=== PATIENT | female | born 1930 | race Caucasian/White ===

== ENCOUNTER 2019-02-25 14:44 | Inpatient (IN) | payer MEDICARE ==
--- NOTE | 2019-02-25 15:48 | EDM.PDOC ---
ED HPI GENERAL MEDICAL PROBLEM - General Chief Complaint: Respiratory Problem Stated Complaint: [facility] Time Seen by Provider: 02/25/19 15:10 Source of Information: Reports: Patient, Family History Limitations: Reports: No Limitations - History of Present Illness INITIAL COMMENTS - FREE TEXT/NARRATIVE: 88-year-old female with a history of intermittent atrial fibrillation has been doing well, Sunday night felt fine but yesterday developed shortness of breath without chest pain or fever. She had difficulty sleeping last night especially lying flat, and is concerned she is gaining weight. She called the clinic to make an appointment at 3:30 today, went to the dentist first and they were concerned that she appeared dyspneic, uncomfortable, and apparently complained of double vision and was "hypertensive" but we did not get a call from the dentist because they called the clinic next door where her appointment was at 3: 30 explaining her symptoms and they told them to just call the ambulance and send her in. Patient arrived dyspneic with O2 at 3 L. She has no double vision currently but she does feel better on the oxygen. Monitor appears to show sinus rhythm with occasional PVCs. She also told me that she was just in the clinic for a checkup last Sunday and was doing fine. There were no medication changes. Onset: Gradual (Over the past 48 hours) Improves with: Reports: Other (Oxygen seems beneficial) Associated Symptoms: Reports: Cough (Nonproductive), Malaise, Weakness, Other ( Intermittent double vision). Denies: Chest Pain - Related Data Allergies Allergy/AdvReac Type Severity Reaction Status Date / Time codeine Allergy Unknown Tachycardia Verified 02/25/19 14:54 levofloxacin [From Levaquin] AdvReac Unknown Diarrhea Verified 02/25/19 14:54 Home Meds: Home Meds Atenolol 50 mg PO DAILY 02/25/19 [History] Calcium Carbonate/Vitamin D3 [Calcium 500 + Vit D Caplet] 1 tab PO DAILY [History] Carboxymethylcellulose Sodium [Thera Tears] 1 drop EYEBOTH DAILY 02/25/19 [ History] Levothyroxine [Synthroid] 88 mcg PO DAILY 02/25/19 [History] Multivitamin [Multi-Vitamin Daily] 1 tab PO DAILY 02/25/19 [History] [place]-3/DHA/Epa/Fish Oil [[place]-3 Fish Oil 1,000 MG Sfgl] 1 cap PO DAILY [History] Potassium Chloride 10 meq PO DAILY 02/25/19 [History] Pravastatin [Pravachol] 40 mg PO DAILY 02/25/19 [History] Rivaroxaban [Xarelto] 15 mg PO DAILY 02/25/19 [History] Vitamin E 1 tab PO DAILY 02/25/19 [History] Past Medical History HEENT History: Reports: Cataract Cardiovascular History: Reports: Afib, High Cholesterol, Hypertension Genitourinary History: Reports: Chronic Renal Insuffiency Musculoskeletal History: Reports: Fracture Endocrine/Metabolic History: Reports: Hypothyroidism Hematologic History: Reports: Iron Deficiency - Infectious Disease History Infectious Disease History: Reports: Chicken Pox, Measles, Mumps - Past Surgical History HEENT Surgical History: Reports: Cataract Surgery GI Surgical History: Reports: Cholecystectomy Social & Family History - Tobacco Use Smoking Status *Q: Never Smoker - Caffeine Use Caffeine Use: Reports: None - Recreational Drug Use Recreational Drug Use: No ED ROS GENERAL - Review of Systems Review Of Systems: See Below Constitutional: Denies: Fever, Chills HEENT: Reports: Vision Change (No significant clarity complaints but she did have double vision this morning) Respiratory: Reports: Shortness of Breath, Cough. Denies: Sputum Cardiovascular: Denies: Chest Pain GI/Abdominal: Denies: Abdominal Pain, Nausea, Vomiting : Reports: No Symptoms Skin: Reports: No Symptoms Neurological: Reports: Dizziness, Weakness Psychiatric: Reports: No Symptoms ED EXAM, GENERAL - Physical Exam Exam: See Below Exam Limited By: No Limitations General Appearance: Alert, No Apparent Distress (Looks uncomfortable but not significantly distressed) Eye Exam: Bilateral Eye: EOMI (EOMs are now intact) Head: Atraumatic Respiratory/Chest: No Respiratory Distress, Other (Bi basilar posterior rales are present with decreased breath sounds in the left base) Cardiovascular: Regular Rate, Rhythm, Extra Beats GI/Abdominal: Soft, Non-Tender Extremities: Pedal Edema (She has just a trace of edema of the lower extremities and ankles, slightly more on the right) Neurological: Alert, Oriented Psychiatric: Normal Affect, Normal Mood Skin Exam: Warm, Dry Course - Vital Signs Last Recorded V/S: Last Vital Signs Temp 97.6 F 02/26/19 04:00 Pulse 63 02/26/19 06:00 Resp 17 02/26/19 06:00 BP 111/78 02/26/19 06:00 Pulse Ox 94 L 02/26/19 06:00 - Orders/Labs/Meds Orders: Active Orders 24 hr Category Date Time Status Styles Catheter Insertion [Insert Urinary Catheter] [OM. Care 02/25/19 16:30 Ordered PC] Q24H Urinary Catheter Assessment [RC] ASDIRECTED Care 02/25/19 16:18 Active Sodium Chloride 0.9% [Saline Flush] Med 02/25/19 16:17 Active 10 ml FLUSH ASDIRECTED PRN Saline Lock Insert [OM.PC] Routine Oth 02/25/19 16:17 Ordered EKG 12 Lead [EK] Routine Ther 02/25/19 15:53 Stop Req Medication Orders Acetaminophen (Tylenol) 650 mg PO Q4H PRN PRN Reason: Pain (Mild 1-3)/fever Last Admin: 02/25/19 22:01 Dose: 650 mg Albuterol (Proventil Neb Soln) 2.5 mg NEB Q4H PRN PRN Reason: Shortness Of Breath/wheezing Artificial Tears (Natural Balance Tears) 0 ml EYEBOTH DAILY MATT Artificial Tears (Natural Balance Tears) 0 ml EYEBOTH DAILY MATT Levothyroxine Sodium (Synthroid) 88 mcg PO DAILY MATT Ondansetron HCl (Zofran Odt) 4 mg PO Q6H PRN PRN Reason: Nausea able to take PO Ondansetron HCl (Zofran) 4 mg IV Q6H PRN PRN Reason: Nausea/Vomiting Polyethylene Glycol (Miralax) 17 gm PO DAILY PRN PRN Reason: Constipation Pravastatin Sodium (Pravachol) 40 mg PO DAILY [facility] Rivaroxaban (Xarelto) 15 mg PO BEDTIME MATT Last Admin: 02/25/19 21:01 Dose: 15 mg Senna/Docusate Sodium (Senna Plus) 1 tab PO DAILY [facility] Sodium Chloride (Saline Flush) 10 ml FLUSH ASDIRECTED PRN PRN Reason: Keep Vein Open Last Admin: 02/25/19 16:31 Dose: 10 ml Labs: Laboratory Tests 02/25/19 02/25/19 02/25/19 Range/Units 15:51 15:52 15:53 WBC 9.4 (4.5-11.0) K/uL RBC 4.78 (3.30-5.50) M/uL Hgb 14.0 (12.0-15.0) g/dL Hct 42.6 (36.0-48.0) % POC Hct (36-48) % MCV 89 (80-98) fL MCH 29 (27-31) pg MCHC 33 (32-36) % Plt Count 264 (150-400) K/uL Neut % (Auto) 80 H (36-66) % Lymph % (Auto) 10 L (24-44) % [place] % (Auto) 9 H (2-6) % Eos % (Auto) 1 L (2-4) % Baso % (Auto) 0 (0-1) % Sample Site POC ABG pH (7.35-7.45) POC ABG pCO2 (35-45) mmHG POC ABG pO2 (80-105) mmHg POC ABG HCO3 (22.0-26.0) mmol/L POC ABG Total CO2 (23-27) mmol/L POC ABG O2 Sat (95-98) % POC ABG Base Excess (-2-3) mmol/L Deni Test POC Sodium (140-148) mmol/L Sodium 129 L (140-148) mmol/L POC Potassium (3.5-4.9) mmol/L Potassium 4.4 (3.6-5.2) mmol/L Chloride 95 L (100-108) mmol/L Carbon Dioxide 24 (21-32) mmol/L Anion Gap 14.4 H (5.0-14.0) mmol/L BUN 17 (7-18) mg/dL Creatinine 1.0 (0.6-1.0) mg/dL Est Cr Clr Drug Dosing 27.93 mL/min Estimated GFR (MDRD) 52 L (>60) Glucose 118 H (74-106) mg/dL Calcium 9.5 (8.5-10.1) mg/dL POC WB Ioniz Calcium (1.12-1.32) mmol/L Total Bilirubin 1.1 H (0.2-1.0) mg/dL AST 43 H (15-37) U/L ALT 47 (12-78) U/L Alkaline Phosphatase 66 (46-116) U/L Troponin I 0.155 H* (0.000-0.056) ng/mL Total Protein 6.5 (6.4-8.2) g/dL Albumin 3.0 L (3.4-5.0) g/dL Globulin 3.5 (2.3-3.5) g/dL Albumin/Globulin Ratio 0.9 L (1.2-2.2) 02/25/19 Range/Units 16:12 WBC (4.5-11.0) K/uL RBC (3.30-5.50) M/uL Hgb (12.0-15.0) g/dL Hct (36.0-48.0) % POC Hct 42.6 (36-48) % MCV (80-98) fL MCH (27-31) pg MCHC (32-36) % Plt Count (150-400) K/uL Neut % (Auto) (36-66) % Lymph % (Auto) (24-44) % [place] % (Auto) (2-6) % Eos % (Auto) (2-4) % Baso % (Auto) (0-1) % Sample Site Lt brachial POC ABG pH 7.48 H (7.35-7.45) POC ABG pCO2 31.1 L (35-45) mmHG POC ABG pO2 75 L (80-105) mmHg POC ABG HCO3 23.1 (22.0-26.0) mmol/L POC ABG Total CO2 24 (23-27) mmol/L POC ABG O2 Sat 96 (95-98) % POC ABG Base Excess 0 (-2-3) mmol/L Deni Test Performed POC Sodium 129 L (140-148) mmol/L Sodium (140-148) mmol/L POC Potassium 4.4 (3.5-4.9) mmol/L Potassium (3.6-5.2) mmol/L Chloride (100-108) mmol/L Carbon Dioxide (21-32) mmol/L Anion Gap (5.0-14.0) mmol/L BUN (7-18) mg/dL Creatinine (0.6-1.0) mg/dL Est Cr Clr Drug Dosing mL/min Estimated GFR (MDRD) (>60) Glucose (74-106) mg/dL Calcium (8.5-10.1) mg/dL POC WB Ioniz Calcium 1.19 (1.12-1.32) mmol/L Total Bilirubin (0.2-1.0) mg/dL AST (15-37) U/L ALT (12-78) U/L Alkaline Phosphatase (46-116) U/L Troponin I (0.000-0.056) ng/mL Total Protein (6.4-8.2) g/dL Albumin (3.4-5.0) g/dL Globulin (2.3-3.5) g/dL Albumin/Globulin Ratio (1.2-2.2) Meds: Medications Generic Name Dose Route Start Last Admin Trade Name Frejadiel PRN Reason Stop Dose Admin Acetaminophen 650 mg 02/25/19 18:17 02/25/19 22:01 Tylenol PO 650 mg Q4H PRN Administration Pain (Mild 1-3)/fever Albuterol 2.5 mg 02/25/19 18:17 Proventil Neb Soln NEB Q4H PRN Shortness Of Breath/wheezing Artificial Tears 0 ml 02/26/19 09:00 Natural Balance Tears EYEBOTH DAILY MATT Artificial Tears 0 ml 02/26/19 09:00 Natural Balance Tears EYEBOTH DAILY MATT Levothyroxine Sodium 88 mcg 02/26/19 09:00 Synthroid PO DAILY MATT Ondansetron HCl 4 mg 02/25/19 18:17 Zofran Odt PO Q6H PRN Nausea able to take PO Ondansetron HCl 4 mg 02/25/19 18:17 Zofran IV Q6H PRN Nausea/Vomiting Polyethylene Glycol 17 gm 02/25/19 18:17 Miralax PO DAILY PRN Constipation Pravastatin Sodium 40 mg 02/26/19 09:00 Pravachol PO DAILY MATT Rivaroxaban 15 mg 02/25/19 21:00 02/25/19 21:01 Xarelto PO 15 mg BEDTIME MATT Administration Senna/Docusate Sodium 1 tab 02/26/19 09:00 Senna Plus PO DAILY MATT Sodium Chloride 10 ml 02/25/19 16:17 02/25/19 16:31 Saline Flush FLUSH 10 ml ASDIRECTED PRN Administration Keep Vein Open Discontinued Medications Generic Name Dose Route Start Last Admin Trade Name José Antonioq PRN Reason Stop Dose Admin Furosemide 40 mg 02/25/19 16:17 02/25/19 16:31 Lasix IVPUSH 04/23/19 16:18 40 mg ONETIME ONE Administration Furosemide 40 mg 02/26/19 01:00 02/26/19 00:25 Lasix IVPUSH 02/26/19 01:01 40 mg ONETIME ONE Administration - Re-Assessments/Exams Free Text/Narrative Re-Assessment/Exam: 02/25/19 16:19 ABGs, portable chest x-ray, CMP CBC and troponin were obtained. Patient was continued on oxygen. Chest x-ray shows significant fluid overload with fairly large left pleural effusion. CBC was normal. IV was started, Styles placed and the patient given 40 mg of IV Lasix. 02/25/19 16:36 Remainder of chemistries and ABGs returned relatively normal. Troponin was 0. Discussed the case with Dr. Love of the hospitalist service, he agreed to assess the patient for admission for further treatment and evaluation of significant and rather sudden onset congestive heart failure and fluid overload. Departure - Departure Time of Disposition: 19:17 Disposition: Admitted As Inpatient 66 Condition: Fair Clinical Impression: Congestive heart failure - Discharge Information - My Orders Last 24 Hours: My Active Orders 02/25/19 15:53 EKG 12 Lead [EK] Routine 02/25/19 16:17 Sodium Chloride 0.9% [Saline Flush] 10 ml FLUSH ASDIRECTED PRN Saline Lock Insert [OM.PC] Routine 02/25/19 16:18 Urinary Catheter Assessment [RC] ASDIRECTED 02/25/19 16:30 Styles Catheter Insertion [Insert Urinary Catheter] [OM.PC] Q24H - Assessment/Plan Last 24 Hours: My Active Orders 02/25/19 15:53 EKG 12 Lead [EK] Routine 02/25/19 16:17 Sodium Chloride 0.9% [Saline Flush] 10 ml FLUSH ASDIRECTED PRN Saline Lock Insert [OM.PC] Routine 02/25/19 16:18 Urinary Catheter Assessment [RC] ASDIRECTED 02/25/19 16:30 Styles Catheter Insertion [Insert Urinary Catheter] [OM.PC] Q24H
[2019-02-25] MEDS ORDERED: Furosemide 40 MG/4 ML VIAL IVPUSH ONE (16:17)
[2019-02-25] MEDS ORDERED: Sodium Chloride 0.9% 10 ML Syringe FLUSH PRN (16:17)
--- NOTE | 2019-02-25 16:45 | CRLCR ---
INDICATION: Shortness of breath TECHNIQUE: Chest 1 view COMPARISON: None FINDINGS: Cardiovascular and mediastinum: Heart borders are obscured. Pulmonary vasculature appears within normal limits. Lungs and pleural spaces: There is a large left pleural effusion. Atelectasis or infiltrates are present in both lower lobes. Upper lungs are clear. No pneumothorax. Bones and soft tissues: No significant findings. Dictated by Abhijeet Adames MD @ 02/25/2019 4:42:55 PM Dictated by: Abhijeet Adames MD @ 02/25/2019 16:43:02 (Electronically Signed)
--- NOTE | 2019-02-25 17:42 | PCM.HP ---
H&P History of Present Illness - General Date of Service: 02/25/19 Admit Problem/Dx: Admission Diagnosis/Problem Admission Diagnosis/Problem Acute systolic congestive heart failure Source of Information: Patient, Family, Provider History Limitations: Reports: No Limitations - History of Present Illness Initial Comments - Free Text/Narative: April presents to the emergency room today with shortness of breath. She reports onset of mild shortness of breath yesterday morning. This has progressed fairly rapidly over the past 24 hours. She is now short of breath even at rest and extremely short of breath with any activity. She has a dry nonproductive cough. She has not had any chest pain recently. She does not report orthopnea. She has not had fevers. She has had some chills but this is not unusual for her. She does not keep track of her weight but does feel like her close been fitting tighter, especially around her abdomen. She has had mild intermittent lower extremity edema but usually seems to go away after elevating her legs. This has not been particularly worse recently. She has some chronic constipation which is unchanged. She has mild urge incontinence which is unchanged. She feels weak and fatigued. She's had some mild dizziness today. Appetite has been down today but had been normal prior to that. She reports that she normally does exercises in the morning but has not been able to do them because of shortness of breath and fatigue the past 2 days. Workup in the emergency room revealed evidence for congestive heart failure based on examination. Chest x-ray showed some pulmonary edema on the right and a very large left-sided pleural effusion. Troponin was very mildly elevated. She received furosemide in the emergency room and will be admitted for management of congestive heart failure. - Related Data Allergies/Adverse Reactions: Allergies Allergy/AdvReac Type Severity Reaction Status Date / Time codeine Allergy Unknown Tachycardia Verified 02/25/19 14:54 levofloxacin [From Levaquin] AdvReac Unknown Diarrhea Verified 02/25/19 14:54 Home Medications: Home Meds Atenolol 50 mg PO DAILY 02/25/19 [History] Calcium Carbonate/Vitamin D3 [Calcium 500 + Vit D Caplet] 1 tab PO DAILY [History] Carboxymethylcellulose Sodium [Thera Tears] 1 drop EYEBOTH DAILY 02/25/19 [ History] Levothyroxine [Synthroid] 88 mcg PO DAILY 02/25/19 [History] Multivitamin [Multi-Vitamin Daily] 1 tab PO DAILY 02/25/19 [History] Oneco-3/DHA/Epa/Fish Oil [Oneco-3 Fish Oil 1,000 MG Sfgl] 1 cap PO DAILY [History] Potassium Chloride 10 meq PO DAILY 02/25/19 [History] Pravastatin [Pravachol] 40 mg PO DAILY 02/25/19 [History] Rivaroxaban [Xarelto] 15 mg PO DAILY 02/25/19 [History] Vitamin E 1 tab PO DAILY 02/25/19 [History] Past Medical History HEENT History: Reports: Cataract Cardiovascular History: Reports: Afib, High Cholesterol, Hypertension Genitourinary History: Reports: Chronic Renal Insuffiency Musculoskeletal History: Reports: Fracture Endocrine/Metabolic History: Reports: Hypothyroidism Hematologic History: Reports: Iron Deficiency - Infectious Disease History Infectious Disease History: Reports: Chicken Pox, Measles, Mumps - Past Surgical History HEENT Surgical History: Reports: Cataract Surgery GI Surgical History: Reports: Cholecystectomy Social & Family History - Family History Cardiac: Reports: Heart Murmur (Brother with history of rheumatic fever). Denies: CAD, Cardiomyopathy - Tobacco Use Smoking Status *Q: Never Smoker - Caffeine Use Caffeine Use: Reports: None - Alcohol Use Alcohol Use History: No - Recreational Drug Use Recreational Drug Use: No H&P Review of Systems - Review of Systems: Review Of Systems: See Below Free Text/Narrative: A complete 12 point review of systems was obtained. Pertinent positives and negatives are noted in the history of present illness. All other systems were reviewed and were negative except as noted. Exam - Exam Exam: See Below - Vital Signs Vital Signs: Last Vital Signs Temp 36.2 C 02/25/19 15:19 Pulse 66 02/25/19 17:23 Resp 24 H 02/25/19 17:23 BP 147/82 H 02/25/19 17:23 Pulse Ox 96 02/25/19 17:23 Weight: 52.617 kg - Exam Quality Assessment: Supplemental Oxygen General: Alert, Oriented, Cooperative, Mild Distress (Increased work of breathing) HEENT: Conjunctiva Clear, Mucosa Moist & [place]. No: Scleral Icterus Neck: Supple, Trachea Midline, JVD (To the earlobe sitting straight up). No: Lymphadenopathy Lungs: Decreased Breath Sounds (Left lung base), Crackles (Right lower lung and left midlung). No: Normal Respiratory Effort (Increased work of breathing), Wheezing Cardiovascular: Regular Rate, Regular Rhythm, Gallop/S3. No: Systolic Murmur GI/Abdominal Exam: Normal Bowel Sounds, Soft, Non-Tender, No Distention, Mass ( Midabdomen) Back Exam: Normal Inspection, Full Range of Motion Extremities: No Pedal Edema. No: Increased Warmth Peripheral Pulses: 1+: Dorsalis Pedis (L), Dorsalis Pedis (R) Skin: Warm, Dry Neuro Extensive - Mental Status: Alert, Oriented x3, Nl Response to Commands Neuro Extensive - Motor, Sensory, Reflexes: CN II-XII Intact. No: Dysarthria, Abnormal Motor, Tremor Psychiatric: Alert, Normal Affect - Patient Data Lab Results Last 24 hrs: Laboratory Results - last 24 hr 02/25/19 02/25/19 02/25/19 Range/Units 15:51 15:52 15:53 WBC 9.4 (4.5-11.0) K/uL RBC 4.78 (3.30-5.50) M/uL Hgb 14.0 (12.0-15.0) g/dL Hct 42.6 (36.0-48.0) % POC Hct (36-48) % MCV 89 (80-98) fL MCH 29 (27-31) pg MCHC 33 (32-36) % Plt Count 264 (150-400) K/uL Neut % (Auto) 80 H (36-66) % Lymph % (Auto) 10 L (24-44) % Jerome % (Auto) 9 H (2-6) % Eos % (Auto) 1 L (2-4) % Baso % (Auto) 0 (0-1) % Sample Site POC ABG pH (7.35-7.45) POC ABG pCO2 (35-45) mmHG POC ABG pO2 (80-105) mmHg POC ABG HCO3 (22.0-26.0) mmol/L POC ABG Total CO2 (23-27) mmol/L POC ABG O2 Sat (95-98) % POC ABG Base Excess (-2-3) mmol/L Deni Test POC Sodium (140-148) mmol/L Sodium 129 L (140-148) mmol/L POC Potassium (3.5-4.9) mmol/L Potassium 4.4 (3.6-5.2) mmol/L Chloride 95 L (100-108) mmol/L Carbon Dioxide 24 (21-32) mmol/L Anion Gap 14.4 H (5.0-14.0) mmol/L BUN 17 (7-18) mg/dL Creatinine 1.0 (0.6-1.0) mg/dL Est Cr Clr Drug Dosing 27.93 mL/min Estimated GFR (MDRD) 52 L (>60) Glucose 118 H (74-106) mg/dL Calcium 9.5 (8.5-10.1) mg/dL POC WB Ioniz Calcium (1.12-1.32) mmol/L Total Bilirubin 1.1 H (0.2-1.0) mg/dL AST 43 H (15-37) U/L ALT 47 (12-78) U/L Alkaline Phosphatase 66 (46-116) U/L Troponin I 0.155 H* (0.000-0.056) ng/mL Total Protein 6.5 (6.4-8.2) g/dL Albumin 3.0 L (3.4-5.0) g/dL Globulin 3.5 (2.3-3.5) g/dL Albumin/Globulin Ratio 0.9 L (1.2-2.2) 02/25/19 Range/Units 16:12 WBC (4.5-11.0) K/uL RBC (3.30-5.50) M/uL Hgb (12.0-15.0) g/dL Hct (36.0-48.0) % POC Hct 42.6 (36-48) % MCV (80-98) fL MCH (27-31) pg MCHC (32-36) % Plt Count (150-400) K/uL Neut % (Auto) (36-66) % Lymph % (Auto) (24-44) % Jerome % (Auto) (2-6) % Eos % (Auto) (2-4) % Baso % (Auto) (0-1) % Sample Site Lt brachial POC ABG pH 7.48 H (7.35-7.45) POC ABG pCO2 31.1 L (35-45) mmHG POC ABG pO2 75 L (80-105) mmHg POC ABG HCO3 23.1 (22.0-26.0) mmol/L POC ABG Total CO2 24 (23-27) mmol/L POC ABG O2 Sat 96 (95-98) % POC ABG Base Excess 0 (-2-3) mmol/L Deni Test Performed POC Sodium 129 L (140-148) mmol/L Sodium (140-148) mmol/L POC Potassium 4.4 (3.5-4.9) mmol/L Potassium (3.6-5.2) mmol/L Chloride (100-108) mmol/L Carbon Dioxide (21-32) mmol/L Anion Gap (5.0-14.0) mmol/L BUN (7-18) mg/dL Creatinine (0.6-1.0) mg/dL Est Cr Clr Drug Dosing mL/min Estimated GFR (MDRD) (>60) Glucose (74-106) mg/dL Calcium (8.5-10.1) mg/dL POC WB Ioniz Calcium 1.19 (1.12-1.32) mmol/L Total Bilirubin (0.2-1.0) mg/dL AST (15-37) U/L ALT (12-78) U/L Alkaline Phosphatase (46-116) U/L Troponin I (0.000-0.056) ng/mL Total Protein (6.4-8.2) g/dL Albumin (3.4-5.0) g/dL Globulin (2.3-3.5) g/dL Albumin/Globulin Ratio (1.2-2.2) Result Diagrams: 02/25/19 15:51 02/25/19 15:52 Imaging Impressions Last 24 hrs: Chest x-ray - images personally reviewed - there is evidence for pulmonary edema on the right side and a very large left-sided pleural effusion. Heart size is not able to be determined because of the large effusion. No obvious mass noted but very limited because of the large effusion. EKG INTERPRETATION EKG Date: 02/25/19 Rhythm: NSR Rate (Beats/Min): 67 Stowell: LAD-Left Stowell Deviation P-Wave: Present QRS: LBBB ST-T: Other (As expected with left bundle branch block) QT: Normal Comparison: NA - No Prior EKG EKG Interpretation Comments: This image was also personally reviewed - there is evidence for first-degree AV block as well *Q Meaningful Use (ADM) - VTE Risk Assess *Q Each Risk Factor Represents 1 Point: Congestive heart failure (CHF) Total Score 1 Point Risk Factors: 1 Each Risk Factor Represents 2 Points: None Total Score 2 Point Risk Factors: 0 Each Risk Factor Represents 3 Points: Age 75 Years or Greater Total Score 3 Point Risk Factors: 3 Each Risk Factor Represents 5 Points: None Total Score 5 Point Risk Factors: 0 Venous Thromboembolism Risk Factor Score *Q: 4 - Problem List (1) Acute systolic congestive heart failure, NYHA class 3 SNOMED Code(s): 009482111, 186019210, 031940521 ICD Code: I50.21 - ACUTE SYSTOLIC (CONGESTIVE) HEART FAILURE Status: Acute Current Visit: Yes (2) Elevated troponin SNOMED Code(s): 814958486, 381972586, 144624960 ICD Code: R74.8 - ABNORMAL LEVELS OF OTHER SERUM ENZYMES Status: Acute Current Visit: Yes (3) Hypothyroidism SNOMED Code(s): 84001724 ICD Code: E03.9 - HYPOTHYROIDISM, UNSPECIFIED Status: Acute Current Visit : Yes Qualifiers: Hypothyroidism type: acquired Qualified Code(s): E03.9 - Hypothyroidism, unspecified Problem List Initiated/Reviewed/Updated: Yes Orders Last 24hrs: Active Orders 24 hr Category Date Time Status Patient Status Manage Transfer [TRANSFER] Routine ADT 02/25/19 17:24 Ordered EKG Documentation Completion [RC] ASDIRECTED Care 02/25/19 15:53 Active Styles Catheter Insertion [Insert Urinary Catheter] [OM. Care 02/25/19 16:30 Ordered PC] Q24H Urinary Catheter Assessment [RC] ASDIRECTED Care 02/25/19 16:18 Active Sodium Chloride 0.9% [Saline Flush] Med 02/25/19 16:17 Active 10 ml FLUSH ASDIRECTED PRN Saline Lock Insert [OM.PC] Routine Oth 02/25/19 16:17 Ordered Resuscitation Status Routine Resus Stat 02/25/19 17:27 Ordered EKG 12 Lead [EK] Routine Ther 02/25/19 15:53 Ordered Medication Orders Sodium Chloride (Saline Flush) 10 ml FLUSH ASDIRECTED PRN PRN Reason: Keep Vein Open Last Admin: 02/25/19 16:31 Dose: 10 ml Assessment/Plan Comment:: ASSESSMENT AND PLAN - Acute systolic congestive heart failure - no history of heart failure or heart issues other than intermittent atrial fibrillation. Sounds like a fairly rapid decompensation over the past 36 hours. Bedside ultrasound showed very poor ejection fraction, probably around 20%. The congestive heart failure is complicated by significant dyspnea with any exertion as well as a large left pleural effusion. Troponin mildly elevated but I doubt this represents an acute coronary syndrome as discussed below. -Furosemide every 8 hours -Styles catheter for strict intake and output monitoring -Reassess volume status in the morning -Formal echocardiogram in the morning -TSH -Change atenolol to metoprolol -Consider NATHANIEL/ARB once more euvolemic if blood pressure tolerates Large left pleural effusion - Probably related to congestive heart failure but cannot rule out underlying malignancy at this point. -Diuresis as above -Surgical consultation the morning for paracentesis Elevated troponin - A mild elevation at this time, I suspect is related to strain from the congestive heart failure. There are no acute ischemic changes on the EKG. -Repeat troponin later tonight and in the morning Paroxysmal atrial fibrillation - currently in sinus rhythm. She is chronically anticoagulated. -Continue beta marilee -Continue rivaroxaban Hypothyroidism - Mild symptoms that could suggest hypothyroid state. -TSH in the morning Maintenance issues - - DVT prophylaxis - rivaroxaban - GI prophylaxis - not indicated - Nutrition - low sodium - Styles catheter - placed in the emergency room for strict intake and output monitoring CODE STATUS - DNR/DNI Admission justification - This patient will be admitted for inpatient services and is medically appropriate meeting medical necessity for inpatient admission as outlined in my documentation. I reasonably expect the patient will require inpatient services that span a period time over 2 midnights. I reasonably expect this patient to be discharged or transferred within 96 hours after admission to the [facility]. Disposition - I would anticipate discharge home after the hospital stay Primary care physician - Clara Love M.D.
[2019-02-25] MEDS ORDERED: Albuterol 0.083% 2.5 MG/3 ML Neb Soln NEB PRN (18:17)
[2019-02-25] MEDS ORDERED: Ondansetron 4 MG Tab.DIS PO PRN (18:17)
[2019-02-25] MEDS ORDERED: Polyethylene Glycol 3350 Powder 17 GM Packet PO PRN (18:17)
[2019-02-25] MEDS ORDERED: Acetaminophen 325 MG Tab PO PRN (18:17)
[2019-02-25] MEDS ORDERED: Ondansetron 4 MG/2 ML SDV IV PRN (18:17)
[2019-02-25] MEDS: Rivaroxaban 15 MG Tab PO SCH (21:01)
[2019-02-26] MEDS ORDERED: Furosemide 40 MG/4 ML VIAL IVPUSH ONE ×2 (01:00→14:00)
[2019-02-26] MEDS: Levothyroxine 88 MCG Tab PO SCH (08:28)
[2019-02-26] MEDS: Hypromellose 0.4% Ophth Soln 15 ML Bottle EYEBOTH SCH (08:32)
[2019-02-26] MEDS ORDERED: Pravastatin 20 MG Tab PO SCH (09:00)
[2019-02-26] MEDS ORDERED: Hypromellose 0.4% Ophth Soln 15 ML Bottle EYEBOTH SCH (09:00)
--- NOTE | 2019-02-26 09:44 | PCM.PN ---
- General Info Date of Service: 02/26/19 Subjective Update: there were no acute events overnight. Troponin level has remained flat but has not normalized. No complaints of chest pain. excellent diuresis overnight with nearly 4 L of fluid off. Shortness of breath is much better today. She is requiring supplemental oxygen at about 4 L/m. No lower extremity edema. Cough is little better. No chest pain. Formal echocardiogram is still pending. Functional Status: Reports: Pain Controlled, Tolerating Diet - Review of Systems Pulmonary: Reports: Shortness of Breath Cardiovascular: Denies: Edema - Patient Data Vitals - Most Recent: Last Vital Signs Temp 35.4 C 02/26/19 08:00 Pulse 88 02/26/19 08:00 Resp 20 02/26/19 08:00 BP 112/78 02/26/19 08:00 Pulse Ox 93 L 02/26/19 08:00 Weight - Most Recent: 51.256 kg I&O - Last 24 Hours: Intake & Output 02/25/19 02/26/19 02/26/19 22:59 06:59 14:59 Intake Total 240 Output Total 1600 2600 350 Balance -1600 -2360 -350 Lab Results Last 24 Hours: Laboratory Results - last 24 hr 02/25/19 02/25/19 02/25/19 Range/Units 15:51 15:52 15:53 WBC 9.4 (4.5-11.0) K/uL RBC 4.78 (3.30-5.50) M/uL Hgb 14.0 (12.0-15.0) g/dL Hct 42.6 (36.0-48.0) % POC Hct (36-48) % MCV 89 (80-98) fL MCH 29 (27-31) pg MCHC 33 (32-36) % Plt Count 264 (150-400) K/uL Neut % (Auto) 80 H (36-66) % Lymph % (Auto) 10 L (24-44) % [place] % (Auto) 9 H (2-6) % Eos % (Auto) 1 L (2-4) % Baso % (Auto) 0 (0-1) % Sample Site POC ABG pH (7.35-7.45) POC ABG pCO2 (35-45) mmHG POC ABG pO2 (80-105) mmHg POC ABG HCO3 (22.0-26.0) mmol/L POC ABG Total CO2 (23-27) mmol/L POC ABG O2 Sat (95-98) % POC ABG Base Excess (-2-3) mmol/L Deni Test POC Sodium (140-148) mmol/L Sodium 129 L (140-148) mmol/L POC Potassium (3.5-4.9) mmol/L Potassium 4.4 (3.6-5.2) mmol/L Chloride 95 L (100-108) mmol/L Carbon Dioxide 24 (21-32) mmol/L Anion Gap 14.4 H (5.0-14.0) mmol/L BUN 17 (7-18) mg/dL Creatinine 1.0 (0.6-1.0) mg/dL Est Cr Clr Drug Dosing 27.93 mL/min Estimated GFR (MDRD) 52 L (>60) Glucose 118 H (74-106) mg/dL Calcium 9.5 (8.5-10.1) mg/dL POC WB Ioniz Calcium (1.12-1.32) mmol/L Total Bilirubin 1.1 H (0.2-1.0) mg/dL AST 43 H (15-37) U/L ALT 47 (12-78) U/L Alkaline Phosphatase 66 (46-116) U/L Troponin I 0.155 H* (0.000-0.056) ng/mL Total Protein 6.5 (6.4-8.2) g/dL Albumin 3.0 L (3.4-5.0) g/dL Globulin 3.5 (2.3-3.5) g/dL Albumin/Globulin Ratio 0.9 L (1.2-2.2) TSH, Ultra Sensitive (0.358-3.740) uIU/mL 02/25/19 02/25/19 02/26/19 Range/Units 16:12 20:55 05:50 WBC 11.5 H (4.5-11.0) K/uL RBC 4.79 (3.30-5.50) M/uL Hgb 14.0 (12.0-15.0) g/dL Hct 42.7 (36.0-48.0) % POC Hct 42.6 (36-48) % MCV 89 (80-98) fL MCH 29 (27-31) pg MCHC 33 (32-36) % Plt Count 259 (150-400) K/uL Neut % (Auto) (36-66) % Lymph % (Auto) (24-44) % [place] % (Auto) (2-6) % Eos % (Auto) (2-4) % Baso % (Auto) (0-1) % Sample Site Lt brachial POC ABG pH 7.48 H (7.35-7.45) POC ABG pCO2 31.1 L (35-45) mmHG POC ABG pO2 75 L (80-105) mmHg POC ABG HCO3 23.1 (22.0-26.0) mmol/L POC ABG Total CO2 24 (23-27) mmol/L POC ABG O2 Sat 96 (95-98) % POC ABG Base Excess 0 (-2-3) mmol/L Deni Test Performed POC Sodium 129 L (140-148) mmol/L Sodium (140-148) mmol/L POC Potassium 4.4 (3.5-4.9) mmol/L Potassium (3.6-5.2) mmol/L Chloride (100-108) mmol/L Carbon Dioxide (21-32) mmol/L Anion Gap (5.0-14.0) mmol/L BUN (7-18) mg/dL Creatinine (0.6-1.0) mg/dL Est Cr Clr Drug Dosing mL/min Estimated GFR (MDRD) (>60) Glucose (74-106) mg/dL Calcium (8.5-10.1) mg/dL POC WB Ioniz Calcium 1.19 (1.12-1.32) mmol/L Total Bilirubin (0.2-1.0) mg/dL AST (15-37) U/L ALT (12-78) U/L Alkaline Phosphatase (46-116) U/L Troponin I 0.169 H* (0.000-0.056) ng/mL Total Protein (6.4-8.2) g/dL Albumin (3.4-5.0) g/dL Globulin (2.3-3.5) g/dL Albumin/Globulin Ratio (1.2-2.2) TSH, Ultra Sensitive (0.358-3.740) uIU/mL 04/24/19 Range/Units 05:50 WBC (4.5-11.0) K/uL RBC (3.30-5.50) M/uL Hgb (12.0-15.0) g/dL Hct (36.0-48.0) % POC Hct (36-48) % MCV (80-98) fL MCH (27-31) pg MCHC (32-36) % Plt Count (150-400) K/uL Neut % (Auto) (36-66) % Lymph % (Auto) (24-44) % [place] % (Auto) (2-6) % Eos % (Auto) (2-4) % Baso % (Auto) (0-1) % Sample Site POC ABG pH (7.35-7.45) POC ABG pCO2 (35-45) mmHG POC ABG pO2 (80-105) mmHg POC ABG HCO3 (22.0-26.0) mmol/L POC ABG Total CO2 (23-27) mmol/L POC ABG O2 Sat (95-98) % POC ABG Base Excess (-2-3) mmol/L Deni Test POC Sodium (140-148) mmol/L Sodium 134 L (140-148) mmol/L POC Potassium (3.5-4.9) mmol/L Potassium 3.6 (3.6-5.2) mmol/L Chloride 95 L (100-108) mmol/L Carbon Dioxide 34 H (21-32) mmol/L Anion Gap 8.6 (5.0-14.0) mmol/L BUN 17 (7-18) mg/dL Creatinine 1.3 H (0.6-1.0) mg/dL Est Cr Clr Drug Dosing 21.49 mL/min Estimated GFR (MDRD) 39 L (>60) Glucose 97 (74-106) mg/dL Calcium 9.3 (8.5-10.1) mg/dL POC WB Ioniz Calcium (1.12-1.32) mmol/L Total Bilirubin (0.2-1.0) mg/dL AST (15-37) U/L ALT (12-78) U/L Alkaline Phosphatase (46-116) U/L Troponin I 0.154 H* (0.000-0.056) ng/mL Total Protein (6.4-8.2) g/dL Albumin (3.4-5.0) g/dL Globulin (2.3-3.5) g/dL Albumin/Globulin Ratio (1.2-2.2) TSH, Ultra Sensitive 1.735 (0.358-3.740) uIU/mL Med Orders - Current: Current Medications Acetaminophen (Tylenol) 650 mg PO Q4H PRN PRN Reason: Pain (Mild 1-3)/fever Last Admin: 02/25/19 22:01 Dose: 650 mg Albuterol (Proventil Neb Soln) 2.5 mg NEB Q4H PRN PRN Reason: Shortness Of Breath/wheezing Artificial Tears (Natural Balance Tears) 0 ml EYEBOTH DAILY [facility] Last Admin: 02/26/19 08:32 Dose: 2 drop Levothyroxine Sodium (Synthroid) 88 mcg PO DAILY@0730 [facility] Last Admin: 02/26/19 08:28 Dose: 88 mcg Ondansetron HCl (Zofran Odt) 4 mg PO Q6H PRN PRN Reason: Nausea able to take PO Ondansetron HCl (Zofran) 4 mg IV Q6H PRN PRN Reason: Nausea/Vomiting Polyethylene Glycol (Miralax) 17 gm PO DAILY PRN PRN Reason: Constipation Pravastatin Sodium (Pravachol) 40 mg PO BEDTIME [facility] Rivaroxaban (Xarelto) 15 mg PO BEDTIME [facility] Last Admin: 02/25/19 21:01 Dose: 15 mg Senna/Docusate Sodium (Senna Plus) 1 tab PO DAILY [facility] Last Admin: 02/26/19 08:33 Dose: 1 tab Sodium Chloride (Saline Flush) 10 ml FLUSH ASDIRECTED PRN PRN Reason: Keep Vein Open Last Admin: 02/25/19 16:31 Dose: 10 ml Discontinued Medications Furosemide (Lasix) 40 mg IVPUSH ONETIME ONE Stop: 02/25/19 16:18 Last Admin: 02/25/19 16:31 Dose: 40 mg Furosemide (Lasix) 40 mg IVPUSH ONETIME ONE Stop: 02/26/19 01:01 Last Admin: 02/26/19 00:25 Dose: 40 mg Pravastatin Sodium (Pravachol) 40 mg PO DAILY [facility] - Exam Quality Assessment: Supplemental Oxygen General: Alert, Oriented, Cooperative, No Acute Distress Lungs: Normal Respiratory Effort, Decreased Breath Sounds (left lung base), Crackles (right lower and left mid). No: Wheezing Cardiovascular: Regular Rate, Irregular Rhythm GI/Abdominal Exam: Soft, No Distention Extremities: No Pedal Edema. No: Increased Warmth Skin: Warm, Dry Psy/Mental Status: Alert, Normal Affect - Problem List & Annotations (1) Acute systolic congestive heart failure, NYHA class 3 SNOMED Code(s): 236033771, 435269015, 732524457 Code(s): I50.21 - ACUTE SYSTOLIC (CONGESTIVE) HEART FAILURE Status: Acute Current Visit: Yes (2) Elevated troponin SNOMED Code(s): 095238971, 048719928, 594611253 Code(s): R74.8 - ABNORMAL LEVELS OF OTHER SERUM ENZYMES Status: Acute Current Visit: Yes (3) Hypothyroidism SNOMED Code(s): 66905684 Code(s): E03.9 - HYPOTHYROIDISM, UNSPECIFIED Status: Acute Current Visit : Yes Qualifiers: Hypothyroidism type: acquired Qualified Code(s): E03.9 - Hypothyroidism, unspecified - Problem List Review Problem List Initiated/Reviewed/Updated: Yes - My Orders Last 24 Hours: My Active Orders 02/25/19 17:27 Resuscitation Status Routine 02/25/19 18:17 Patient Status [ADT] Routine Antiembolic Devices [RC] .Routine Cardiac Monitoring [RC] Q6H Intake and Output [RC] QSHIFT Notify Provider Vital Signs [RC] ASDIRECTED Oxygen Therapy [RC] PRN Pulse Oximetry [RC] CONTINUOUS RT Aerosol Therapy [RC] ASDIRECTED Up With Assistance [RC] ASDIRECTED VTE/DVT Education [RC] Per Unit Routine Vital Signs [RC] Q4H Acetaminophen [Tylenol] 650 mg PO Q4H PRN Albuterol [Proventil Neb Soln] 2.5 mg NEB Q4H PRN Ondansetron [Zofran ODT] 4 mg PO Q6H PRN Ondansetron [Zofran] 4 mg IV Q6H PRN Polyethylene Glycol 3350 [MiraLAX] 17 gm PO DAILY PRN Antiembolic Hose [OM.PC] Per Unit Routine 02/25/19 21:00 Rivaroxaban [Xarelto] 15 mg PO BEDTIME 02/25/19 Dinner 2 Gram Sodium Diet [DIET] 02/26/19 07:00 Echo Comp wo Cont [US] Routine 02/26/19 07:30 Levothyroxine [Synthroid] 88 mcg PO DAILY@0730 02/26/19 09:00 Docusate Sodium/Sennosides [Senna Plus] 1 tab PO DAILY Hypromellose [Natural Balance Tears] 0 ml EYEBOTH DAILY 02/26/19 09:39 Potassium Chloride [Klor-Con M20] 40 meq PO ONETIME ONE 02/26/19 09:41 MAGNESIUM [CHEM] Routine 02/26/19 09:42 Transfer Patient (Change bed) [ADT] Routine 02/26/19 14:00 Furosemide [Lasix] 40 mg IVPUSH ONETIME ONE 02/26/19 21:00 Pravastatin [Pravachol] 40 mg PO BEDTIME 02/27/19 05:00 BASIC METABOLIC PANEL,BMP [CHEM] Timed CBC W/O DIFF,HEMOGRAM [HEME] Timed (1) TROPONIN I [CHEM] Timed - Plan Plan:: ASSESSMENT AND PLAN - Acute systolic congestive heart failure - clinically much better. Formal echocardiogram pending. Still requiring supplemental oxygen. Creatinine slightly higher today so we will have to hold off on additional furosemide until this afternoon. -Furosemide 1 this afternoon and reassess volume status in the morning -Styles catheter for strict intake and output monitoring -Formal echocardiogram -Change atenolol to metoprolol -Consider NATHANIEL/ARB once more euvolemic if blood pressure tolerates Large left pleural effusion - Probably related to congestive heart failure but cannot rule out underlying malignancy at this point. she did have her DOAC last night so we will have to wait until tomorrow for the thoracentesis. -Diuresis as above -Surgical consultation the morning for thoracentesis Elevated troponin - mild elevation with stable level suggesting strain related to congestive heart failure. -Repeat troponin in the morning Paroxysmal atrial fibrillation - she is now atrial fibrillation with a controlled ventricular rate. -Continue beta marilee -Continue rivaroxaban Hypothyroidism - TSH normal. Maintenance issues - - DVT prophylaxis - rivaroxaban (holding tonight for procedure tomorrow) - GI prophylaxis - not indicated - Nutrition - low sodium - Styles catheter - placed in the emergency room for strict intake and output monitoring, plan to remove once diuresis is complete Disposition - I would anticipate discharge home after the hospital stay Cedrick Love M.D.
[2019-02-26] MEDS ORDERED: Potassium Chloride 20 MEQ Tab.ER PO ONE (10:00)
[2019-02-26] MEDS: Magnesium Sulfate/Water 2 GM in Premix Bag 1 BAG IV SCH ×2 (15:15→20:57)
[2019-02-26] MEDS ORDERED: Metoprolol Succinate 50 MG Tab.ER PO ONE (17:56)
[2019-02-26] MEDS: Pravastatin 20 MG Tab PO SCH (21:02)
[2019-02-27] MEDS: Levothyroxine 88 MCG Tab PO SCH (08:48)
[2019-02-27] MEDS: Hypromellose 0.4% Ophth Soln 15 ML Bottle EYEBOTH SCH (08:49)
[2019-02-27] MEDS ORDERED: Metoprolol Succinate 50 MG Tab.ER PO SCH (09:00)
[2019-02-27] MEDS: Potassium Chloride 20 MEQ Tab.ER PO SCH ×2 (10:28→18:00)
--- NOTE | 2019-02-27 12:25 | PCM.PN ---
- General Info Date of Service: 02/27/19 Subjective Update: There were no acute events overnight. Patient did have suboptimal control of her atrial fibrillation noted is a little better today. Shortness of breath has improved significantly. Still requiring 2 L of supplemental oxygen. No complaints of chest pain. Echocardiogram showed reduced ejection fraction at 25- 30%. She has mild aortic and moderate mitral insufficiency. Thoracentesis is pending. Functional Status: Reports: Pain Controlled, Tolerating Diet - Review of Systems Pulmonary: Reports: Cough - Patient Data Vitals - Most Recent: Last Vital Signs Temp 36.5 C 02/27/19 09:02 Pulse 122 H 02/27/19 09:02 Resp 18 02/27/19 09:02 BP 123/98 H 02/27/19 09:02 Pulse Ox 96 02/27/19 09:02 Weight - Most Recent: 51.256 kg I&O - Last 24 Hours: Intake & Output 02/26/19 02/27/19 02/27/19 22:59 06:59 14:59 Intake Total 410 500 Output Total 1200 450 Balance -790 -450 500 Lab Results Last 24 Hours: Laboratory Results - last 24 hr 02/27/19 02/27/19 Range/Units 04:44 04:44 WBC 10.9 (4.5-11.0) K/uL RBC 4.91 (3.30-5.50) M/uL Hgb 14.1 (12.0-15.0) g/dL Hct 43.7 (36.0-48.0) % MCV 89 (80-98) fL MCH 29 (27-31) pg MCHC 32 (32-36) % Plt Count 288 (150-400) K/uL Sodium 135 L (140-148) mmol/L Potassium 3.3 L (3.6-5.2) mmol/L Chloride 98 L (100-108) mmol/L Carbon Dioxide 31 (21-32) mmol/L Anion Gap 9.3 (5.0-14.0) mmol/L BUN 20 H (7-18) mg/dL Creatinine 1.2 H (0.6-1.0) mg/dL Est Cr Clr Drug Dosing 23.28 mL/min Estimated GFR (MDRD) 42 L (>60) Glucose 85 (74-106) mg/dL Calcium 9.0 (8.5-10.1) mg/dL Troponin I 0.083 H* (0.000-0.056) ng/mL Med Orders - Current: Current Medications Acetaminophen (Tylenol) 650 mg PO Q4H PRN PRN Reason: Pain (Mild 1-3)/fever Last Admin: 02/25/19 22:01 Dose: 650 mg Albuterol (Proventil Neb Soln) 2.5 mg NEB Q4H PRN PRN Reason: Shortness Of Breath/wheezing Artificial Tears (Natural Balance Tears) 0 ml EYEBOTH DAILY [facility] Last Admin: 02/27/19 08:49 Dose: 1 drop Levothyroxine Sodium (Synthroid) 88 mcg PO DAILY@0730 [facility] Last Admin: 02/27/19 08:48 Dose: 88 mcg Metoprolol Succinate (Toprol Xl) 50 mg PO DAILY [facility] Last Admin: 02/27/19 08:51 Dose: 50 mg Ondansetron HCl (Zofran Odt) 4 mg PO Q6H PRN PRN Reason: Nausea able to take PO Ondansetron HCl (Zofran) 4 mg IV Q6H PRN PRN Reason: Nausea/Vomiting Polyethylene Glycol (Miralax) 17 gm PO DAILY PRN PRN Reason: Constipation Potassium Chloride (Klor-Con M20) 40 meq PO BIDMEALS [facility] Last Admin: 02/27/19 10:28 Dose: 40 meq Pravastatin Sodium (Pravachol) 40 mg PO BEDTIME [facility] Last Admin: 02/26/19 21:02 Dose: 40 mg Rivaroxaban (Xarelto) 15 mg PO BEDTIME [facility] Last Admin: 02/25/19 21:01 Dose: 15 mg Senna/Docusate Sodium (Senna Plus) 1 tab PO DAILY [facility] Last Admin: 02/27/19 08:50 Dose: 1 tab Sodium Chloride (Saline Flush) 10 ml FLUSH ASDIRECTED PRN PRN Reason: Keep Vein Open Last Admin: 02/25/19 16:31 Dose: 10 ml Discontinued Medications Furosemide (Lasix) 40 mg IVPUSH ONETIME ONE Stop: 02/25/19 16:18 Last Admin: 02/25/19 16:31 Dose: 40 mg Furosemide (Lasix) 40 mg IVPUSH ONETIME ONE Stop: 02/26/19 01:01 Last Admin: 02/26/19 00:25 Dose: 40 mg Furosemide (Lasix) 40 mg IVPUSH ONETIME ONE Stop: 02/26/19 14:01 Last Admin: 02/26/19 13:35 Dose: 40 mg Magnesium Sulfate 2 gm/ Premix 50 mls @ 12.5 mls/hr IV Q6H MATT Stop: 02/27/19 00:59 Last Admin: 02/26/19 20:57 Dose: 12.5 mls/hr Metoprolol Succinate (Toprol Xl) 50 mg PO ONETIME ONE Stop: 02/26/19 17:57 Last Admin: 02/26/19 18:21 Dose: 50 mg Potassium Chloride (Klor-Con M20) 40 meq PO ONETIME ONE Stop: 02/26/19 10:01 Last Admin: 02/26/19 10:09 Dose: 40 meq Pravastatin Sodium (Pravachol) 40 mg PO DAILY [facility]ATT - Exam Quality Assessment: Supplemental Oxygen General: Alert, Oriented, Cooperative, No Acute Distress Lungs: Normal Respiratory Effort, Decreased Breath Sounds (left). No: Crackles , Wheezing Cardiovascular: Regular Rate, Irregular Rhythm GI/Abdominal Exam: Soft, No Distention Extremities: No Pedal Edema Psy/Mental Status: Alert, Normal Affect - Problem List & Annotations (1) Acute systolic congestive heart failure, NYHA class 3 SNOMED Code(s): 300020078, 398972563, 455333495 Code(s): I50.21 - ACUTE SYSTOLIC (CONGESTIVE) HEART FAILURE Status: Acute Current Visit: Yes (2) Elevated troponin SNOMED Code(s): 245806147, 640816734, 901349911 Code(s): R74.8 - ABNORMAL LEVELS OF OTHER SERUM ENZYMES Status: Acute Current Visit: Yes (3) Hypothyroidism SNOMED Code(s): 31413986 Code(s): E03.9 - HYPOTHYROIDISM, UNSPECIFIED Status: Acute Current Visit : Yes Qualifiers: Hypothyroidism type: acquired Qualified Code(s): E03.9 - Hypothyroidism, unspecified - Problem List Review Problem List Initiated/Reviewed/Updated: Yes - My Orders Last 24 Hours: My Active Orders 02/26/19 21:00 Pravastatin [Pravachol] 40 mg PO BEDTIME 02/27/19 07:00 Echo Comp wo Cont [US] Routine 02/27/19 09:00 Metoprolol Succinate [Toprol XL] 50 mg PO DAILY Potassium Chloride [Klor-Con M20] 40 meq PO BIDMEALS 02/27/19 11:06 US Guidance Thoracentesis NC [US] Routine 02/27/19 12:22 Furosemide [Lasix] 20 mg IVPUSH ONETIME ONE 02/28/19 05:00 BASIC METABOLIC PANEL,BMP [CHEM] Timed 02/28/19 09:00 Furosemide [Lasix] 20 mg PO DAILY - Plan Plan:: ASSESSMENT AND PLAN - Acute systolic congestive heart failure - clinically much better. Formal echocardiogram showed EF about 25-30%. Clinically doing much better and I think that with thoracentesis as discussed below she will be in even better shape. Still requiring supplemental oxygen. -Furosemide 1 this afternoon and transition to oral in the morning -Styles catheter for strict intake and output monitoring -Continue metoprolol, consider small dose increased -Consider NATHANIEL/ARB once more euvolemic if blood pressure tolerates Large left pleural effusion - Probably related to congestive heart failure but cannot rule out underlying malignancy at this point. Thoracentesis planned this afternoon. -Diuresis as above -Surgical consultation the morning for thoracentesis Elevated troponin - mild elevation with slow trend down suggesting strain from heart failure. Paroxysmal atrial fibrillation - she is now atrial fibrillation with a mildly elevated ventricular rate -Continue beta marilee, consider small dose increase in the morning -Restart rivaroxaban tonight Hypothyroidism - TSH normal. Maintenance issues - - DVT prophylaxis - rivaroxaban - GI prophylaxis - not indicated - Nutrition - low sodium - Styles catheter - will be removed today Disposition - I would anticipate discharge home after the hospital stay Cedrick Love M.D.
[2019-02-27] MEDS ORDERED: Furosemide 20 MG/2 ML VIAL IVPUSH ONE (12:45)
[2019-02-27] MEDS ORDERED: Metoprolol Tartrate 25 MG Tab PO ONE (17:09)
[2019-02-27] MEDS: Pravastatin 20 MG Tab PO SCH (20:28)
[2019-02-27] MEDS: Rivaroxaban 15 MG Tab PO SCH (23:39)
--- NOTE | 2019-02-28 06:54 | CRLCR ---
INDICATION: Post thoracentesis. COMPARISON: Chest radiograph February 25, 2019. TECHNIQUE: Portable AP chest. FINDINGS: Cardiomegaly. No pneumothorax on either side. Almost complete resolution of the pleural effusion in the left chest when compared to the previous study. Small pleural effusion on the right. No CHF at this time. IMPRESSION: 1. No pneumothorax. 2. Complete resolution of the left-sided pleural effusion. 3. Small right-sided pleural effusion. 4. No CHF. 5. Stable cardiomegaly. Dictated by Martha Whitman MD @ Feb 28 2019 6:52AM Signed by Dr. Martha Whitman @ Feb 28 2019 6:53AM
[2019-02-28] MEDS: Potassium Chloride 20 MEQ Tab.ER PO SCH (07:49)
[2019-02-28] MEDS: Levothyroxine 88 MCG Tab PO SCH (07:49)
[2019-02-28] MEDS: Metoprolol Succinate 25 MG Tab.ER PO SCH (08:31)
[2019-02-28] MEDS: Furosemide 20 MG Tab PO SCH (08:32)
[2019-02-28] MEDS: Hypromellose 0.4% Ophth Soln 15 ML Bottle EYEBOTH SCH (08:32)
[2019-02-28] MEDS ORDERED: Digoxin 125 MCG Tab PO ONE (10:00)
--- NOTE | 2019-02-28 12:27 | PCM.PN ---
- General Info Date of Service: 02/28/19 Subjective Update: There were no acute events overnight. The patient did have her thoracentesis this morning. Approximately 350 mL of fluid was removed successfully. She is feeling much less short of breath and much better in general after the fluid was removed. She is now off supplemental oxygen. Unfortunately despite medication adjustment she remains tachycardic in atrial fibrillation. She does not have chest pain or palpitations. Functional Status: Reports: Pain Controlled, Tolerating Diet - Review of Systems Cardiovascular: Denies: Chest Pain - Patient Data Vitals - Most Recent: Last Vital Signs Temp 36.2 C 02/28/19 06:16 Pulse 122 H 02/28/19 11:00 Resp 16 02/28/19 11:00 BP 118/86 02/28/19 11:00 Pulse Ox 93 L 02/28/19 11:00 Weight - Most Recent: 48.444 kg I&O - Last 24 Hours: Intake & Output 02/27/19 02/28/19 02/28/19 22:59 06:59 14:59 Intake Total 420 400 Output Total 700 500 Balance -280 -500 400 Lab Results Last 24 Hours: Laboratory Results - last 24 hr 02/28/19 02/28/19 02/28/19 Range/Units 05:36 06:41 06:41 Sodium 137 L (140-148) mmol/L Potassium 4.4 (3.6-5.2) mmol/L Chloride 100 (100-108) mmol/L Carbon Dioxide 31 (21-32) mmol/L Anion Gap 10.4 (5.0-14.0) mmol/L BUN 18 (7-18) mg/dL Creatinine 1.2 H (0.6-1.0) mg/dL Est Cr Clr Drug Dosing 23.28 mL/min Estimated GFR (MDRD) 42 L (>60) Glucose 86 (74-106) mg/dL Calcium 8.7 (8.5-10.1) mg/dL Fluid Type Pleural fluid Pleural fluid Fluid pH 8 Fluid WBC /ul Fluid RBC /ul Fluid Diff Comment Fluid Mononuclear Cell % Fl Polymorphonucl Cell % Fluid Glucose mg/dL Fluid Total Protein g/dL Fluid LDH 92 IU/L Fluid Amylase U/L 02/28/19 02/28/19 02/28/19 Range/Units 06:41 06:41 06:41 Sodium (140-148) mmol/L Potassium (3.6-5.2) mmol/L Chloride (100-108) mmol/L Carbon Dioxide (21-32) mmol/L Anion Gap (5.0-14.0) mmol/L BUN (7-18) mg/dL Creatinine (0.6-1.0) mg/dL Est Cr Clr Drug Dosing mL/min Estimated GFR (MDRD) (>60) Glucose (74-106) mg/dL Calcium (8.5-10.1) mg/dL Fluid Type Pleural fluid Pleural fluid Pleural fluid Fluid pH Fluid WBC 918 /ul Fluid RBC 1935 /ul Fluid Diff Comment Pleural fluid Fluid Mononuclear Cell 91 % Fl Polymorphonucl Cell 9 % Fluid Glucose 94 mg/dL Fluid Total Protein 2.6 g/dL Fluid LDH IU/L Fluid Amylase 26 U/L Med Orders - Current: Current Medications Acetaminophen (Tylenol) 650 mg PO Q4H PRN PRN Reason: Pain (Mild 1-3)/fever Last Admin: 02/25/19 22:01 Dose: 650 mg Albuterol (Proventil Neb Soln) 2.5 mg NEB Q4H PRN PRN Reason: Shortness Of Breath/wheezing Artificial Tears (Natural Balance Tears) 0 ml EYEBOTH DAILY [facility] Last Admin: 02/28/19 08:32 Dose: 1 drop Furosemide (Lasix) 20 mg PO DAILY [facility] Last Admin: 02/28/19 08:32 Dose: 20 mg Levothyroxine Sodium (Synthroid) 88 mcg PO DAILY@0730 [facility] Last Admin: 02/28/19 07:49 Dose: 88 mcg Metoprolol Succinate (Toprol Xl) 75 mg PO DAILY [facility] Last Admin: 02/28/19 08:31 Dose: 75 mg Ondansetron HCl (Zofran Odt) 4 mg PO Q6H PRN PRN Reason: Nausea able to take PO Ondansetron HCl (Zofran) 4 mg IV Q6H PRN PRN Reason: Nausea/Vomiting Polyethylene Glycol (Miralax) 17 gm PO DAILY PRN PRN Reason: Constipation Potassium Chloride (Klor-Con M20) 40 meq PO BIDMEALS [facility] Last Admin: 02/28/19 07:49 Dose: 40 meq Pravastatin Sodium (Pravachol) 40 mg PO BEDTIME [facility] Last Admin: 02/27/19 20:28 Dose: 40 mg Rivaroxaban (Xarelto) 15 mg PO BEDTIME [facility] Last Admin: 02/27/19 23:39 Dose: Not Given Senna/Docusate Sodium (Senna Plus) 1 tab PO DAILY [facility] Last Admin: 02/28/19 08:32 Dose: 1 tab Sodium Chloride (Saline Flush) 10 ml FLUSH ASDIRECTED PRN PRN Reason: Keep Vein Open Last Admin: 02/25/19 16:31 Dose: 10 ml Discontinued Medications Digoxin (Lanoxin) 125 mcg PO ONETIME ONE Stop: 02/28/19 10:01 Last Admin: 02/28/19 10:21 Dose: 125 mcg Furosemide (Lasix) 40 mg IVPUSH ONETIME ONE Stop: 02/25/19 16:18 Last Admin: 02/25/19 16:31 Dose: 40 mg Furosemide (Lasix) 40 mg IVPUSH ONETIME ONE Stop: 02/26/19 01:01 Last Admin: 02/26/19 00:25 Dose: 40 mg Furosemide (Lasix) 40 mg IVPUSH ONETIME ONE Stop: 02/26/19 14:01 Last Admin: 02/26/19 13:35 Dose: 40 mg Furosemide (Lasix) 20 mg IVPUSH ONETIME ONE Stop: 02/27/19 12:46 Last Admin: 02/27/19 14:42 Dose: 20 mg Magnesium Sulfate 2 gm/ Premix 50 mls @ 12.5 mls/hr IV Q6H MATT Stop: 02/27/19 00:59 Last Admin: 02/26/19 20:57 Dose: 12.5 mls/hr Metoprolol Succinate (Toprol Xl) 50 mg PO DAILY [facility] Last Admin: 02/27/19 08:51 Dose: 50 mg Metoprolol Succinate (Toprol Xl) 50 mg PO ONETIME ONE Stop: 02/26/19 17:57 Last Admin: 02/26/19 18:21 Dose: 50 mg Metoprolol Tartrate (Lopressor) 25 mg PO ONETIME ONE Stop: 02/27/19 17:10 Last Admin: 02/27/19 18:01 Dose: 25 mg Potassium Chloride (Klor-Con M20) 40 meq PO ONETIME ONE Stop: 02/26/19 10:01 Last Admin: 02/26/19 10:09 Dose: 40 meq Pravastatin Sodium (Pravachol) 40 mg PO DAILY MATT - Exam Quality Assessment: No: Supplemental Oxygen General: Alert, Oriented, Cooperative, No Acute Distress Lungs: Clear to Auscultation, Normal Respiratory Effort Cardiovascular: Irregular Rhythm, Tachycardia GI/Abdominal Exam: Soft, No Distention Extremities: No Pedal Edema Psy/Mental Status: Alert, Normal Affect - Problem List & Annotations (1) Acute systolic congestive heart failure, NYHA class 3 SNOMED Code(s): 194159772, 798214659, 798053262 Code(s): I50.21 - ACUTE SYSTOLIC (CONGESTIVE) HEART FAILURE Status: Acute Current Visit: Yes (2) Elevated troponin SNOMED Code(s): 689395376, 053683295, 094978313 Code(s): R74.8 - ABNORMAL LEVELS OF OTHER SERUM ENZYMES Status: Acute Current Visit: Yes (3) Hypothyroidism SNOMED Code(s): 16386794 Code(s): E03.9 - HYPOTHYROIDISM, UNSPECIFIED Status: Acute Current Visit : Yes Qualifiers: Hypothyroidism type: acquired Qualified Code(s): E03.9 - Hypothyroidism, unspecified - Problem List Review Problem List Initiated/Reviewed/Updated: Yes - My Orders Last 24 Hours: My Active Orders 02/28/19 09:00 Furosemide [Lasix] 20 mg PO DAILY Metoprolol Succinate [Toprol XL] 75 mg PO DAILY 03/01/19 05:00 BASIC METABOLIC PANEL,BMP [CHEM] Timed - Plan Plan:: ASSESSMENT AND PLAN - Acute systolic congestive heart failure - clinically much better. Formal echocardiogram showed EF about 25-30%. Now off supplemental oxygen and volume status appears to be euvolemic. -Continue oral furosemide -Styles catheter has been removed -Continue metoprolol with small dose increase -She does not have adequate pressure to initiate an NATHANIEL inhibitor or ARB at this time Large left pleural effusion - secondary to congestive heart failure. Now status post thoracentesis. -Surgical consultation appreciated Elevated troponin - mild elevation with slow trend down suggesting strain from heart failure. Paroxysmal atrial fibrillation - she is now atrial fibrillation with a persistently elevated ventricular rate. -Continue beta marilee -Low-dose diltiazem for additional rate control -Restart rivaroxaban tonight Hypothyroidism - TSH normal. Maintenance issues - - DVT prophylaxis - rivaroxaban - GI prophylaxis - not indicated - Nutrition - low sodium Disposition - I would anticipate discharge home after the hospital stay once her atrial fibrillation has been stabilized Cedrick Love M.D.
[2019-02-28] MEDS ORDERED: Diltiazem IR 30 MG Tab PO ONE (13:19)
[2019-02-28] MEDS: Diltiazem IR 30 MG Tab PO SCH (20:12)
[2019-02-28] MEDS: Pravastatin 20 MG Tab PO SCH (20:13)
[2019-02-28] MEDS: Rivaroxaban 15 MG Tab PO SCH (20:13)
[2019-03-01] MEDS: Diltiazem IR 30 MG Tab PO SCH ×2 (01:07→07:06)
[2019-03-01] MEDS: Levothyroxine 88 MCG Tab PO SCH (08:49)
[2019-03-01] MEDS ORDERED: Diltiazem 180 MG Cap.CD PO SCH (09:00)
[2019-03-01] MEDS: Furosemide 20 MG Tab PO SCH (09:33)
[2019-03-01] MEDS: Hypromellose 0.4% Ophth Soln 15 ML Bottle EYEBOTH SCH (09:34)
[2019-03-01] MEDS: Metoprolol Succinate 25 MG Tab.ER PO SCH (09:34)
--- NOTE | 2019-03-01 12:50 | PCM.DCSUM1 ---
Discharge Summary - Hospital Course Brief History: 88-year-old female with history of paroxysmal atrial fibrillation on chronic anticoagulation who presented with weakness and shortness of breath. Workup in the emergency room was suggestive of acute systolic congestive heart failure and she was admitted for further management. Diagnosis: Stroke: No - Discharge Data Discharge Date: 03/01/19 Discharge Disposition: Home, Self-Care 01 Condition: Good - Discharge Diagnosis/Problem(s) (1) Acute systolic congestive heart failure, NYHA class 3 SNOMED Code(s): 109220071, 571937289, 116002666 ICD Code: I50.21 - ACUTE SYSTOLIC (CONGESTIVE) HEART FAILURE Status: Acute Current Visit: Yes (2) Elevated troponin SNOMED Code(s): 233390306, 633164958, 463398431 ICD Code: R74.8 - ABNORMAL LEVELS OF OTHER SERUM ENZYMES Status: Acute Current Visit: Yes (3) Hypothyroidism SNOMED Code(s): 26025304 ICD Code: E03.9 - HYPOTHYROIDISM, UNSPECIFIED Status: Acute Current Visit : Yes Qualifiers: Hypothyroidism type: acquired Qualified Code(s): E03.9 - Hypothyroidism, unspecified (4) Paroxysmal atrial fibrillation with rapid ventricular response SNOMED Code(s): 967448796, 562768194405156 ICD Code: I48.0 - PAROXYSMAL ATRIAL FIBRILLATION Status: Acute Current Visit: Yes - Patient Summary/Data Hospital Course: April presented to the emergency room with several days of progressive shortness of breath and weakness. Workup in the emergency room was very concerning for congestive heart failure and bedside ultrasound confirmed low ejection fraction. chest x-ray suggested pulmonary edema and a large left pleural effusion. Troponin was very mildly elevated. She had a Styles catheter placed and received furosemide in the emergency room and was admitted for further management. Overnight following admission she responded well to diuresis. She had nearly 4 L out beyond her intake for the night. Symptomatically she was feeling better but still requiring supplemental oxygen. Her creatinine did rise slightly from the time of admission to the next morning so we reduced her diuresis for the next 24 hours. An echocardiogram was obtained on the second day of hospitalization. This showed significantly reduced ejection fraction at 25-30%. She had mild aortic insufficiency as well as moderate mitral insufficiency and possible mitral valve prolapse. She responded well to even the reduced dosing of furosemide and had additional net negative fluid loss. Symptomatically she improved even further. Unfortunately she did go into atrial fibrillation after initially being in a sinus rhythm. She did have a rapid ventricular response with atrial fibrillation. Fortunately we were able to manage this using oral medications. Initially we increased her metoprolol. We did try digoxin without much luck and then we tried diltiazem with better luck. After several titration attempts we were able to settle on a dose of long- acting diltiazem. She has had steady improvement in her congestive heart failure. We did perform a thoracentesis one day before discharge with further improvement in her clinical status. Once the straw-colored fluid was removed she was off supplemental oxygen very quickly. The thoracentesis fluid was consistent with a transudate. The patient has Systolic congestive heart failure. The exact cause is not entirely clear at this point. Tachycardia mediated cardiomyopathy could be considered since the patient has paroxysmal atrial fibrillation and has no symptoms even when her heart rate is in the 130s. She did have a very mild elevation of her troponin which remained stable before improving which was suggestive of strain rather than an acute coronary syndrome. Occult ischemia could be considered though the patient has a good functional status and is able to exercise without any chest pain or shortness of breath. Her thyroid studies were normal and the hospital stay. She does have some mild valvular abnormalities by don't think they're quite severe enough to explain this level of cardiomyopathy. She has been started on long-acting metoprolol. We've been working to control her ventricular rate with atrial fibrillation. I did consider starting an NATHANIEL inhibitor versus an ARB but with borderline low blood pressures were unable to initiate an afterload reducing medication. She is are anticoagulated with rivaroxaban. She is now euvolemic. Her heart rate with the atrial fibrillation is well controlled with heart rates in the 80s and 90s. She has been up and walking around and feels well. I believe she is safe for discharge. She has early hospital follow-up planned. New medications include metoprolol, diltiazem and furosemide. - Patient Instructions Diet: Heart Healthy Diet Activity: As Tolerated Driving: May Drive Today Showering/Bathing: May Shower Notify Provider of: Fever, Increased Pain, Nausea and/or Vomiting Other/Special Instructions: 1. You were in hospital for management of acute systolic congestive heart failure which was complicated by paroxysmal atrial fibrillation. You presented with shortness of breath and we found evidence for fluid around your lungs, especially on the left side. We performed an echocardiogram which showed that the function of your left ventricle is reduced to 25-30%. Your condition has been improving with diuretic therapy furosemide ( Lasix). we also performed a thoracentesis to remove the fluid around the lung on the left side. We have made several medication changes as outlined below. Your volume status appears to be appropriate at this time after diuresis. Your heart rate has been well-controlled utilizing metoprolol and diltiazem. --STOP taking atenolol. --Start taking metoprolol succinate 75 mg once daily in the morning. This medication helps to slow down your heart rate and make your heart more efficient. --Start taking diltiazem 180 mg once daily in the morning. This medication helps to slow down your heart rate with atrial fibrillation. -- Start taking furosemide 20 mg once daily in the morning. This medication helps to reduce the fluid inside your body and make the work of your heart easier. 2. Follow up as scheduled on March 07 with Clara Morris. 3. Seek medical attention if you develop a fever greater than 101, severe shortness of breath, chest pain or palpitations. - Discharge Plan *PRESCRIPTION DRUG MONITORING PROGRAM REVIEWED*: Not Applicable *COPY OF PRESCRIPTION DRUG MONITORING REPORT IN PATIENT BRIANNA: Not Applicable Prescriptions/Med Rec: Diltiazem HCl [Diltiazem 24Hr Cd] 180 mg PO DAILY #30 cap.er.24h Furosemide [Lasix] 20 mg PO DAILY #30 tablet Metoprolol Succinate 75 mg PO DAILY #45 tab.er.24h Home Medications: Home Meds Calcium Carbonate/Vitamin D3 [Calcium 500 + Vit D Caplet] 1 tab PO DAILY [History] Carboxymethylcellulose Sodium [Thera Tears] 1 drop EYEBOTH DAILY 02/25/19 [ History] Levothyroxine [Synthroid] 88 mcg PO DAILY 02/25/19 [History] Multivitamin [Multi-Vitamin Daily] 1 tab PO DAILY 02/25/19 [History] [place]-3/DHA/Epa/Fish Oil [[place]-3 Fish Oil 1,000 MG Sfgl] 1 cap PO DAILY [History] Potassium Chloride 10 meq PO DAILY 02/25/19 [History] Pravastatin [Pravachol] 40 mg PO DAILY 02/25/19 [History] Rivaroxaban [Xarelto] 15 mg PO DAILY 02/25/19 [History] Vitamin E 1 tab PO DAILY 02/25/19 [History] Diltiazem HCl [Diltiazem 24Hr Cd] 180 mg PO DAILY #30 cap.er.24h 03/01/19 [Rx] Furosemide [Lasix] 20 mg PO DAILY #30 tablet 03/01/19 [Rx] Metoprolol Succinate 75 mg PO DAILY #45 tab.er.24h 03/01/19 [Rx] Oxygen Therapy Mode: Room Air Patient Handouts: Diltiazem extended-release capsules or tablets, Heart Failure , [id number] Referrals: Clara Morris PA [Primary Care Provider] - 03/07/19 1:30 pm (Please arrive 15 minutes early to register for your appointment.) - Discharge Summary/Plan Comment DC Time >30 min.: No - Patient Data Vitals - Most Recent: Last Vital Signs Temp 36.2 C 03/01/19 11:26 Pulse 69 03/01/19 11:26 Resp 16 03/01/19 11:26 BP 110/72 03/01/19 11:26 Pulse Ox 98 03/01/19 11:26 Weight - Most Recent: 48.444 kg I&O - Last 24 hours: Intake & Output 02/28/19 03/01/19 03/01/19 22:59 06:59 14:59 Intake Total 360 600 Output Total 100 150 400 Balance 260 -150 200 Lab Results - Last 24 hrs: Laboratory Results - last 24 hr 03/01/19 Range/Units 05:00 Sodium 136 L (140-148) mmol/L Potassium 4.4 (3.6-5.2) mmol/L Chloride 101 (100-108) mmol/L Carbon Dioxide 29 (21-32) mmol/L Anion Gap 10.4 (5.0-14.0) mmol/L BUN 15 (7-18) mg/dL Creatinine 1.1 H (0.6-1.0) mg/dL Est Cr Clr Drug Dosing 25.39 mL/min Estimated GFR (MDRD) 47 L (>60) Glucose 85 (74-106) mg/dL Calcium 8.4 L (8.5-10.1) mg/dL DEEPA Results - Last 24 hrs: Microbiology 02/28/19 06:41 Gram Stain - Final Pleural Fluid - Pleural Cavity, Left Body Fluid Culture - Preliminary NO GROWTH AFTER 1 DAY Med Orders - Current: Current Medications Acetaminophen (Tylenol) 650 mg PO Q4H PRN PRN Reason: Pain (Mild 1-3)/fever Last Admin: 02/25/19 22:01 Dose: 650 mg Albuterol (Proventil Neb Soln) 2.5 mg NEB Q4H PRN PRN Reason: Shortness Of Breath/wheezing Artificial Tears (Natural Balance Tears) 0 ml EYEBOTH DAILY [facility] Last Admin: 03/01/19 09:34 Dose: 1 drop Diltiazem HCl (Cardizem Cd) 180 mg PO DAILY [facility] Last Admin: 03/01/19 09:33 Dose: 180 mg Furosemide (Lasix) 20 mg PO DAILY [facility] Last Admin: 03/01/19 09:33 Dose: 20 mg Levothyroxine Sodium (Synthroid) 88 mcg PO DAILY@0730 [facility] Last Admin: 03/01/19 08:49 Dose: 88 mcg Metoprolol Succinate (Toprol Xl) 75 mg PO DAILY [facility] Last Admin: 03/01/19 09:34 Dose: 75 mg Ondansetron HCl (Zofran Odt) 4 mg PO Q6H PRN PRN Reason: Nausea able to take PO Ondansetron HCl (Zofran) 4 mg IV Q6H PRN PRN Reason: Nausea/Vomiting Polyethylene Glycol (Miralax) 17 gm PO DAILY PRN PRN Reason: Constipation Pravastatin Sodium (Pravachol) 40 mg PO BEDTIME [facility] Last Admin: 02/28/19 20:13 Dose: 40 mg Rivaroxaban (Xarelto) 15 mg PO BEDTIME [facility] Last Admin: 02/28/19 20:13 Dose: 15 mg Senna/Docusate Sodium (Senna Plus) 1 tab PO DAILY [facility] Last Admin: 03/01/19 09:34 Dose: 1 tab Sodium Chloride (Saline Flush) 10 ml FLUSH ASDIRECTED PRN PRN Reason: Keep Vein Open Last Admin: 02/25/19 16:31 Dose: 10 ml Discontinued Medications Digoxin (Lanoxin) 125 mcg PO ONETIME ONE Stop: 02/28/19 10:01 Last Admin: 02/28/19 10:21 Dose: 125 mcg Diltiazem HCl (Cardizem) 30 mg PO ONETIME ONE Stop: 02/28/19 13:20 Last Admin: 02/28/19 13:47 Dose: 30 mg Diltiazem HCl (Cardizem) 45 mg PO Q6H [facility] Last Admin: 03/01/19 07:06 Dose: Not Given Furosemide (Lasix) 40 mg IVPUSH ONETIME ONE Stop: 02/25/19 16:18 Last Admin: 02/25/19 16:31 Dose: 40 mg Furosemide (Lasix) 40 mg IVPUSH ONETIME ONE Stop: 02/26/19 01:01 Last Admin: 02/26/19 00:25 Dose: 40 mg Furosemide (Lasix) 40 mg IVPUSH ONETIME ONE Stop: 02/26/19 14:01 Last Admin: 02/26/19 13:35 Dose: 40 mg Furosemide (Lasix) 20 mg IVPUSH ONETIME ONE Stop: 02/27/19 12:46 Last Admin: 02/27/19 14:42 Dose: 20 mg Magnesium Sulfate 2 gm/ Premix 50 mls @ 12.5 mls/hr IV Q6H [facility] Stop: 02/27/19 00:59 Last Admin: 02/26/19 20:57 Dose: 12.5 mls/hr Metoprolol Succinate (Toprol Xl) 50 mg PO DAILY [facility] Last Admin: 02/27/19 08:51 Dose: 50 mg Metoprolol Succinate (Toprol Xl) 50 mg PO ONETIME ONE Stop: 02/26/19 17:57 Last Admin: 02/26/19 18:21 Dose: 50 mg Metoprolol Tartrate (Lopressor) 25 mg PO ONETIME ONE Stop: 02/27/19 17:10 Last Admin: 02/27/19 18:01 Dose: 25 mg Potassium Chloride (Klor-Con M20) 40 meq PO ONETIME ONE Stop: 02/26/19 10:01 Last Admin: 02/26/19 10:09 Dose: 40 meq Potassium Chloride (Klor-Con M20) 40 meq PO BIDMEALS [facility] Last Admin: 02/28/19 07:49 Dose: 40 meq Pravastatin Sodium (Pravachol) 40 mg PO DAILY [facility] - Exam Quality Assessment: Denies: Supplemental Oxygen General: Reports: Alert, Oriented, Cooperative, No Acute Distress Lungs: Reports: Clear to Auscultation, Normal Respiratory Effort Cardiovascular: Reports: Regular Rate, Irregular Rhythm GI/Abdominal Exam: Soft, No Distention Extremities: No Pedal Edema Psy/Mental Status: Reports: Alert, Normal Affect
--- NOTE | 2019-03-02 16:56 | OR ---
DATE OF PROCEDURE: 02/28/2019 PREOPERATIVE DIAGNOSIS: Symptomatic left pleural effusion. POSTOPERATIVE DIAGNOSIS: Symptomatic left pleural effusion. OPERATIVE PROCEDURE: Ultrasound-guided left thoracentesis ([id number]). ANESTHESIA: Local. TOOL KEEPER: LISA Duran. INDICATION FOR PROCEDURE: This is an 88-year-old admitted with what appears to be a congestive heart failure, who has a fairly large left pleural effusion that was felt to be symptomatic. For therapeutic and diagnostic purposes, the patient is undergoing a left thoracentesis. Potential risks of the procedure including bleeding, infection, and pneumothorax were reviewed, and the patient wishes to proceed. DETAILS OF PROCEDURE: In the patient's hospital room, she was placed in the sitting position. An optimal site for thoracentesis had been marked by ultrasound in the left posterolateral chest wall and that area was prepped and draped and anesthetized with 1% lidocaine. Thoracentesis catheter was then placed without difficulty and 700 mL of clear serous fluid was evacuated. As much fluid as possible was removed. The catheter was withdrawn and a dressing applied. The fluid appeared to be transudate like grossly and was sent for full microbiologic, cytologic, cell count differential, and chemistry evaluation. Subsequent chest x-ray showed no complications. The patient had a fairly large heart, but the costophrenic angle could be seen on the AP chest view indicating near complete evacuation of the pleural fluid. Ryan Mon MD /[id number]
== END 2019-03-01 13:45 | disposition home or self-care (01) | DRG 291 ==
LOC: JP.ED 14:44 → JP.ICU 17:24 → JP.MS 02-26 14:16
PROVIDERS: ADMIT Internal Medicine; ATTEND Internal Medicine
PROC: 0W9B3ZX Drainage of Left Pleural Cavity, Percutaneous Approach, Diagnostic (ICD-10-PCS; principal; 2019-02-28)
DX: I13.0 Hypertensive heart and chronic kidney disease with heart failure and stage 1 through stage 4 chronic kidney disease, or unspecified chronic kidney disease (principal); I50.21 Acute systolic (congestive) heart failure; J90 Pleural effusion, not elsewhere classified; N18.9 Chronic kidney disease, unspecified; I48.0 Paroxysmal atrial fibrillation; I50.9 Heart failure, unspecified; E03.9 Hypothyroidism, unspecified; R06.02 Shortness of breath; R53.1 Weakness; R74.8 Abnormal levels of other serum enzymes; Z79.01 Long term (current) use of anticoagulants; E78.00 Pure hypercholesterolemia, unspecified; K59.09 Other constipation; N39.41 Urge incontinence; Z88.1 Allergy status to other antibiotic agents; Z88.5 Allergy status to narcotic agent; Z79.899 Other long term (current) drug therapy; I35.1 Nonrheumatic aortic (valve) insufficiency; I34.0 Nonrheumatic mitral (valve) insufficiency; I34.1 Nonrheumatic mitral (valve) prolapse
CPT/HCPCS: 36415; 36600; 51702; 71045; 80048; 80053; 82150; 82803; 82945; 83615; 83735; 83986; 84157; 84443; 84484; 85025; 85027; 87015; 87070; 87102; 87116; 87205; 87206; 89050; 93005; 93010; 93306; 96374; 99285; 99285-25; A9270-GY; J1940; J3475

== ENCOUNTER 2019-03-24 00:18 | Emergency (ER) | payer MEDICARE ==
[2019-03-24] MEDS ORDERED: Acetaminophen/HYDROcodone 325-5 MG Tab PO ONE (00:45)
--- NOTE | 2019-03-24 00:53 | EDM.PDOC ---
ED HPI GENERAL MEDICAL PROBLEM - General Chief Complaint: Back Pain or Injury Stated Complaint: VIA NORTH-BACK PAIN Time Seen by Provider: 03/24/19 00:35 Source of Information: Reports: Patient, Family History Limitations: Reports: No Limitations - History of Present Illness INITIAL COMMENTS - FREE TEXT/NARRATIVE: 88-year-old female lives at home. This morning she was doing some exercises and early afternoon started noticing some pain in her right lower back which is made worse with movement. This increased during the day despite taking 1 Tylenol at about 1 PM. She was having some difficulty with getting in and out of bed because of pain in the right lower back. She does not have any chronic back problems and arthritis and she denies any injuries. She does have a history of some cardiac problems but has not had any problems with this today. Right Hip/Back Pain Score (Numeric/FACES): 8 - Related Data Allergies Allergy/AdvReac Type Severity Reaction Status Date / Time codeine Allergy Unknown Tachycardia Verified 03/24/19 00:28 levofloxacin [From Levaquin] AdvReac Unknown Diarrhea Verified 03/24/19 00:28 Home Meds: Home Meds Calcium Carbonate/Vitamin D3 [Calcium 500 + Vit D Caplet] 1 tab PO DAILY [History] Carboxymethylcellulose Sodium [Thera Tears] 1 drop EYEBOTH DAILY 02/25/19 [ History] Levothyroxine [Synthroid] 88 mcg PO DAILY 02/25/19 [History] Multivitamin [Multi-Vitamin Daily] 1 tab PO DAILY 02/25/19 [History] [place]-3/DHA/Epa/Fish Oil [[place]-3 Fish Oil 1,000 MG Sfgl] 1 cap PO DAILY [History] Potassium Chloride 10 meq PO DAILY 02/25/19 [History] Pravastatin [Pravachol] 40 mg PO DAILY 02/25/19 [History] Rivaroxaban [Xarelto] 15 mg PO DAILY 02/25/19 [History] Vitamin E 1 tab PO DAILY 02/25/19 [History] Diltiazem HCl [Diltiazem 24Hr Cd] 180 mg PO DAILY #30 cap.er.24h 03/01/19 [Rx] Furosemide [Lasix] 20 mg PO DAILY #30 tablet 03/01/19 [Rx] Metoprolol Succinate 75 mg PO DAILY #45 tab.er.24h 03/01/19 [Rx] Past Medical History HEENT History: Reports: Cataract Cardiovascular History: Reports: Afib, Heart Failure, High Cholesterol, Hypertension, Other (See Below) Other Cardiovascular History: Recent hospitalization 02/25/19 for CHF and A-Fib with RVR. 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 History: Reports: Fracture Endocrine/Metabolic History: Reports: Hypothyroidism Hematologic History: Reports: Iron Deficiency - Infectious Disease History Infectious Disease History: Reports: Chicken Pox - Past Surgical History HEENT Surgical History: Reports: Cataract Surgery GI Surgical History: Reports: Cholecystectomy Social & Family History - Family History Family Medical History: Noncontributory Cardiac: Reports: Heart Murmur - Tobacco Use Smoking Status *Q: Never Smoker Second Hand Smoke Exposure: No - Caffeine Use Caffeine Use: Reports: Coffee - Recreational Drug Use Recreational Drug Use: No ED ROS GENERAL - Review of Systems Review Of Systems: See Below HEENT: Reports: No Symptoms Respiratory: Reports: No Symptoms Cardiovascular: Reports: No Symptoms GI/Abdominal: Reports: No Symptoms : Reports: Dysuria, Other (Mentioned a slight dysuria earlier today.) Musculoskeletal: Reports: Back Pain. Denies: Leg Pain, Joint Pain Psychiatric: Reports: No Symptoms ED EXAM,LOWER BACK PAIN/INJURY - Physical Exam Exam: See Below Exam Limited By: No Limitations General Appearance: Alert, Mild Distress Respiratory/Chest: No Respiratory Distress, Lungs Clear Cardiovascular: Regular Rate, Rhythm, No Murmur GI/Abdominal: Normal Bowel Sounds, Soft, Non-Tender (Female) Exam: Other (No flank tenderness.) Back Exam: Other (Tenderness present over the right sacroiliac joint.). No: CVA Tenderness (R), CVA Tenderness (L), Vertebral Tenderness Neurological: Alert, Normal Mood/Affect, No Motor/Sensory Deficits. No: Straight Leg Raise (L), Straight Leg Raise (R) Course - Vital Signs Last Recorded V/S: Last Vital Signs Temp 36.3 C 03/24/19 00:21 Pulse 58 L 03/24/19 00:21 Resp 12 03/24/19 00:21 BP 147/89 H 03/24/19 00:21 Pulse Ox 96 03/24/19 00:21 - Orders/Labs/Meds Orders: Active Orders 24 hr Category Date Time Status Peripheral IV Care [RC] . DIRECTED Care 03/24/19 02:12 Ordered Sodium Chloride 0.9% [Normal Saline] 500 ml Med 03/24/19 02:15 Ordered IV .BOLUS Sodium Chloride 0.9% [Saline Flush] Med 03/24/19 02:11 Ordered 10 ml FLUSH ASDIRECTED PRN Peripheral IV Insertion Adult [OM.PC] Urgent Oth 03/24/19 02:11 Ordered Medication Orders Sodium Chloride (Normal Saline) 500 mls @ 1,000 mls/hr IV .BOLUS MATT Last Admin: 03/24/19 02:39 Dose: 1,000 mls/hr Sodium Chloride (Saline Flush) 10 ml FLUSH ASDIRECTED PRN PRN Reason: Keep Vein Open Last Admin: 03/24/19 02:41 Dose: 10 ml Labs: Laboratory Tests 03/24/19 03/24/19 03/24/19 Range/Units 00:59 01:35 01:35 WBC 11.8 H (4.5-11.0) K/uL RBC 4.74 (3.30-5.50) M/uL Hgb 13.8 (12.0-15.0) g/dL Hct 41.7 (36.0-48.0) % MCV 88 (80-98) fL MCH 29 (27-31) pg MCHC 33 (32-36) % Plt Count 243 (150-400) K/uL Neut % (Auto) 77 H (36-66) % Lymph % (Auto) 7 L (24-44) % Tripp % (Auto) 15 H (2-6) % Eos % (Auto) 0 L (2-4) % Baso % (Auto) 0 (0-1) % Sodium 124 L (140-148) mmol/L Potassium 3.6 (3.6-5.2) mmol/L Chloride 88 L (100-108) mmol/L Carbon Dioxide 29 (21-32) mmol/L Anion Gap 10.6 (5.0-14.0) mmol/L BUN 10 (7-18) mg/dL Creatinine 1.1 H (0.6-1.0) mg/dL Est Cr Clr Drug Dosing 25.39 mL/min Estimated GFR (MDRD) 47 L (>60) Glucose 118 H (74-106) mg/dL Lactic Acid (0.4-2.0) mmol/L Calcium 9.2 (8.5-10.1) mg/dL Total Bilirubin 1.3 H (0.2-1.0) mg/dL AST 22 (15-37) U/L ALT 17 (12-78) U/L Alkaline Phosphatase 64 (46-116) U/L Troponin I 0.038 (0.000-0.056) ng/mL Total Protein 6.6 (6.4-8.2) g/dL Albumin 2.9 L (3.4-5.0) g/dL Globulin 3.7 H (2.3-3.5) g/dL Albumin/Globulin Ratio 0.8 L (1.2-2.2) Urine Color Yellow Urine Appearance Cloudy Urine pH 8.0 (4.5-8.0) Ur Specific [place] 1.010 (1.008-1.030) Urine Protein 30 H (NEGATIVE) mg/dL Urine Glucose (UA) Normal (NEGATIVE) mg/dL Urine Ketones 15 H (NEGATIVE) mg/dL Urine Occult Blood Large (NEGATIVE) Urine Nitrite Positive H (NEGATIVE) Urine Bilirubin Negative (NEGATIVE) Urine Urobilinogen Normal (NORMAL) mg/dL Ur Leukocyte Esterase Large (NEGATIVE) Urine RBC >100 H (0-5) Urine WBC >100 H (0-5) Ur Epithelial Cells Few Amorphous Sediment Not seen Urine Bacteria Many Urine Mucus Not seen 03/24/19 Range/Units 01:35 WBC (4.5-11.0) K/uL RBC (3.30-5.50) M/uL Hgb (12.0-15.0) g/dL Hct (36.0-48.0) % MCV (80-98) fL MCH (27-31) pg MCHC (32-36) % Plt Count (150-400) K/uL Neut % (Auto) (36-66) % Lymph % (Auto) (24-44) % Tripp % (Auto) (2-6) % Eos % (Auto) (2-4) % Baso % (Auto) (0-1) % Sodium (140-148) mmol/L Potassium (3.6-5.2) mmol/L Chloride (100-108) mmol/L Carbon Dioxide (21-32) mmol/L Anion Gap (5.0-14.0) mmol/L BUN (7-18) mg/dL Creatinine (0.6-1.0) mg/dL Est Cr Clr Drug Dosing mL/min Estimated GFR (MDRD) (>60) Glucose (74-106) mg/dL Lactic Acid 2.0 (0.4-2.0) mmol/L Calcium (8.5-10.1) mg/dL Total Bilirubin (0.2-1.0) mg/dL AST (15-37) U/L ALT (12-78) U/L Alkaline Phosphatase (46-116) U/L Troponin I (0.000-0.056) ng/mL Total Protein (6.4-8.2) g/dL Albumin (3.4-5.0) g/dL Globulin (2.3-3.5) g/dL Albumin/Globulin Ratio (1.2-2.2) Urine Color Urine Appearance Urine pH (4.5-8.0) Ur Specific [place] (1.008-1.030) Urine Protein (NEGATIVE) mg/dL Urine Glucose (UA) (NEGATIVE) mg/dL Urine Ketones (NEGATIVE) mg/dL Urine Occult Blood (NEGATIVE) Urine Nitrite (NEGATIVE) Urine Bilirubin (NEGATIVE) Urine Urobilinogen (NORMAL) mg/dL Ur Leukocyte Esterase (NEGATIVE) Urine RBC (0-5) Urine WBC (0-5) Ur Epithelial Cells Amorphous Sediment Urine Bacteria Urine Mucus Meds: Medications Generic Name Dose Route Start Last Admin Trade Name Freq PRN Reason Stop Dose Admin Sodium Chloride 500 mls @ 1,000 mls/hr 03/24/19 02:15 03/24/19 02:39 Normal Saline IV 1,000 mls/hr .BOLUS MATT Administration Sodium Chloride 10 ml 03/24/19 02:11 03/24/19 02:41 Saline Flush FLUSH 10 ml ASDIRECTED PRN Administration Keep Vein Open Discontinued Medications Generic Name Dose Route Start Last Admin Trade Name Freq PRN Reason Stop Dose Admin Hydrocodone Bitart/Acetaminophen 1 tab 03/24/19 00:45 03/24/19 00:54 [place] 325-5 Mg PO 03/24/19 00:46 1 tab ONETIME ONE Administration Fentanyl 25 mcg 03/24/19 02:14 03/24/19 02:40 Sublimaze IVPUSH 03/24/19 02:15 25 mcg ONETIME ONE Administration Ceftriaxone Sodium 1 gm/ 50 mls @ 100 mls/hr 03/24/19 02:13 03/24/19 02:43 Sodium Chloride IV 03/24/19 02:42 100 mls/hr ONETIME ONE Administration Ondansetron HCl Confirm 03/24/19 02:07 03/24/19 02:09 Zofran Odt Administered 03/24/19 02:08 Not Given Dose 4 mg .ROUTE .STK-MED ONE Ondansetron HCl 4 mg 03/24/19 02:08 03/24/19 02:09 Zofran Odt PO 03/24/19 02:09 4 mg ONETIME ONE Administration - Radiology Interpretation Free Text/Narrative:: Lumbar spine x-ray shows scoliosis and osteoarthritis but nothing acute. - Re-Assessments/Exams Free Text/Narrative Re-Assessment/Exam: 03/24/19 03:19 Patient was given hydrocodone 5/325 with improvement of pain. She developed a little bit of nausea. She was given Zofran ODT 4 mg sublingual which improved her nausea. An IV was started with normal saline and she was given Rocephin 1 g IV for her urinary tract infection. Her vital signs were stable and her lactic acid was normal and she did not have a fever making sepsis unlikely. She was able to get up and walk around. She was given an extra 25 g of fentanyl IV which improved her pain more. Departure - Departure Time of Disposition: 03:40 Disposition: Home, Self-Care 01 Clinical Impression: Acute cystitis - Discharge Information *PRESCRIPTION DRUG MONITORING PROGRAM REVIEWED*: No *COPY OF PRESCRIPTION DRUG MONITORING REPORT IN PATIENT BRIANNA: No Referrals: Carline Haque MD [Primary Care Provider] - Forms: ED Department Discharge Additional Instructions: Prescription for Bactrim DS twice daily for 7 days prescribed. Also given a prescription for hydrocodone 5/325 one tablet every 4 hours as needed for pain. Return if symptoms become acutely worse. Follow up if back pain is not resolving in one week. - Problem List & Annotations (1) Acute low back pain SNOMED Code(s): 152376143 Code(s): M54.5 - LOW BACK PAIN Status: Acute Current Visit: Yes (2) Acute cystitis SNOMED Code(s): 97358396 Code(s): N30.00 - ACUTE CYSTITIS WITHOUT HEMATURIA Status: Acute Current Visit: Yes - My Orders Last 24 Hours: My Active Orders 03/24/19 02:11 Sodium Chloride 0.9% [Saline Flush] 10 ml FLUSH ASDIRECTED PRN Peripheral IV Insertion Adult [OM.PC] Urgent 03/24/19 02:12 Peripheral IV Care [RC] . DIRECTED 03/24/19 02:15 Sodium Chloride 0.9% [Normal Saline] 500 ml IV .BOLUS - Assessment/Plan Last 24 Hours: My Active Orders 03/24/19 02:11 Sodium Chloride 0.9% [Saline Flush] 10 ml FLUSH ASDIRECTED PRN Peripheral IV Insertion Adult [OM.PC] Urgent 03/24/19 02:12 Peripheral IV Care [RC] . DIRECTED 03/24/19 02:15 Sodium Chloride 0.9% [Normal Saline] 500 ml IV .BOLUS
--- NOTE | 2019-03-24 01:40 | CRLCR ---
Indication: Low-back pain. Technique: Three views of the lumbar spine were obtained. Comparison: None Findings: Levoscoliosis of the lumbar spine is identified. Compression fractures of T12, L1, and L2 are identified, of uncertain chronicity. Facet joint arthropathy of the lower lumbar spine is identified. Intervertebral disc space narrowing is identified throughout with relative sparing at L5-S1. Impression: Scoliosis and degenerative change. Compression of T12 through L2, of uncertain chronicity. Dictated by Esther Rollins MD @ Mar 24 2019 1:37AM Signed by Dr. Esthre Rollins @ Mar 24 2019 1:38AM
[2019-03-24] MEDS ORDERED: Ondansetron 4 MG Tab.DIS ONE (02:07)
[2019-03-24] MEDS ORDERED: Ondansetron 4 MG Tab.DIS PO ONE (02:08)
[2019-03-24] MEDS ORDERED: Sodium Chloride 0.9% 10 ML Syringe FLUSH PRN (02:11)
[2019-03-24] MEDS ORDERED: cefTRIAXone 1 GM in Sodium Chloride 0.9% 50 ML IV ONE (02:13)
[2019-03-24] MEDS ORDERED: fentaNYL 100 MCG/2 ML SDV IVPUSH ONE (02:14)
[2019-03-24] MEDS ORDERED: Sodium Chloride 0.9% 500 ML IV SCH (02:15)
== END 2019-03-24 05:15 | disposition home or self-care (01) ==
LOC: JP.ED 00:18
DX: N30.00 Acute cystitis without hematuria (principal); I13.0 Hypertensive heart and chronic kidney disease with heart failure and stage 1 through stage 4 chronic kidney disease, or unspecified chronic kidney disease; I50.9 Heart failure, unspecified; N18.9 Chronic kidney disease, unspecified; E03.9 Hypothyroidism, unspecified; I48.91 Unspecified atrial fibrillation; Z79.899 Other long term (current) drug therapy; Z98.49 Cataract extraction status, unspecified eye; Z90.49 Acquired absence of other specified parts of digestive tract; Z88.5 Allergy status to narcotic agent; Z88.1 Allergy status to other antibiotic agents
CPT/HCPCS: 36415; 72100; 80053; 81001; 83605; 84484; 85025; 96365; 96375; 99284; A9270; J0696; J3010; J7030; J7050

== ENCOUNTER 2019-03-27 12:54 | Inpatient (IN) | payer MEDICARE ==
[2019-03-27] MEDS ORDERED: Magnesium Hydroxide 400 MG/5 ML Susp 30 ML Cup PO PRN (14:34)
[2019-03-27] MEDS ORDERED: Ondansetron 4 MG/2 ML SDV IV PRN (14:34)
[2019-03-27] MEDS ORDERED: Acetaminophen 325 MG Tab PO PRN (14:34)
[2019-03-27] MEDS ORDERED: Sodium Chloride 0.9% 10 ML Syringe FLUSH PRN (14:34)
[2019-03-27] MEDS ORDERED: Albuterol 0.083% 2.5 MG/3 ML Neb Soln NEB PRN (14:34)
[2019-03-27] MEDS ORDERED: LORazepam 2 MG/ML SDV IVPUSH PRN (14:34)
[2019-03-27] MEDS ORDERED: Melatonin 3 MG Tab PO PRN (14:34)
[2019-03-27] MEDS ORDERED: Ondansetron 4 MG Tab.DIS PO PRN (14:34)
--- NOTE | 2019-03-27 14:43 | PCM.HP ---
H&P History of Present Illness - General Date of Service: 03/27/19 Admit Problem/Dx: Admission Diagnosis/Problem Admission Diagnosis/Problem Hyponatremia Source of Information: Patient, Family, Provider History Limitations: Reports: No Limitations - History of Present Illness Initial Comments - Free Text/Narative: CC: I have no appetite and just don't feel good Pat presents as a direct admission from the clinic where she presented with 3 days of nausea with dry heaves and a general feeling of unwell. Symptoms started Sunday after she was started on Bactrim for a urinary tract infection. She was seen in the emergency room on Sunday night with right lower back pain. Workup suggested urinary tract infection and she was started on the Bactrim at that time. Starting on Sunday morning, 3 days ago she developed mild nausea. Her appetite decreased significantly. This has progressed throughout the week to the point that she is afraid to eat or drink anything because of dry heaves that follow ingestion. She has been able to keep her pills down. She does not feel particularly short of breath at this time and she has not had any chest pain. She does note that her weight has increased from 106 pounds up to 113 pounds over the past 5 days but is down to 109 today after she took an extra dose of her diuretic yesterday. She does not have orthopnea or cough. She does not have lower extremity edema. Workup in the clinic revealed a sodium level of 118 and a potassium level of 3.1. Chest x-ray showed some reaccumulation of her left sided pleural effusion. Given her systemic symptoms as well as significant lab abnormalities she was sent for direct admission. - Related Data Allergies/Adverse Reactions: Allergies Allergy/AdvReac Type Severity Reaction Status Date / Time codeine AdvReac Unknown Tachycardia Verified 03/24/19 07:37 levofloxacin [From Levaquin] AdvReac Unknown Diarrhea Verified 03/24/19 00:28 Home Medications: Home Meds Calcium Carbonate/Vitamin D3 [Calcium 500 + Vit D Caplet] 1 tab PO DAILY [History] Carboxymethylcellulose Sodium [Thera Tears] 1 drop EYEBOTH DAILY 02/25/19 [ History] Levothyroxine [Synthroid] 88 mcg PO DAILY 02/25/19 [History] Multivitamin [Multi-Vitamin Daily] 1 tab PO DAILY 02/25/19 [History] [place]-3/DHA/Epa/Fish Oil [[place]-3 Fish Oil 1,000 MG Sfgl] 1 cap PO DAILY [History] Potassium Chloride 10 meq PO DAILY 02/25/19 [History] Pravastatin [Pravachol] 40 mg PO DAILY 02/25/19 [History] Rivaroxaban [Xarelto] 15 mg PO DAILY 02/25/19 [History] Vitamin E 1 tab PO DAILY 02/25/19 [History] Diltiazem HCl [Diltiazem 24Hr Cd] 180 mg PO DAILY #30 cap.er.24h 03/01/19 [Rx] Furosemide [Lasix] 20 mg PO DAILY #30 tablet 03/01/19 [Rx] Metoprolol Succinate 75 mg PO DAILY #45 tab.er.24h 03/01/19 [Rx] Past Medical History HEENT History: Reports: Cataract Cardiovascular History: Reports: Afib, Heart Failure, High Cholesterol, Hypertension, Other (See Below) Other Cardiovascular History: Recent hospitalization 02/25/19 for CHF and A-Fib with RVR. 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: Reports: Fracture Endocrine/Metabolic History: Reports: Hypothyroidism Hematologic History: Reports: Iron Deficiency - Infectious Disease History Infectious Disease History: Reports: Chicken Pox - Past Surgical History HEENT Surgical History: Reports: Cataract Surgery GI Surgical History: Reports: Cholecystectomy Social & Family History - Family History Family Medical History: Noncontributory Cardiac: Reports: Heart Murmur - Tobacco Use Smoking Status *Q: Never Smoker - Caffeine Use Caffeine Use: Reports: Coffee - Alcohol Use Alcohol Use History: No H&P Review of Systems - Review of Systems: Review Of Systems: See Below Free Text/Narrative: A complete 12 point review of systems was obtained. Pertinent positives and negatives are noted in the history of present illness. All other systems were reviewed and were negative except as noted. Exam - Exam Exam: See Below - Vital Signs Vital Signs: Last Vital Signs Temp 35.5 C 03/27/19 13:10 Pulse 65 03/27/19 13:10 Resp 18 03/27/19 13:10 BP 135/95 H 03/27/19 13:10 Pulse Ox 92 L 03/27/19 13:10 Weight: 49.986 kg - Exam Quality Assessment: No: Supplemental Oxygen General: Alert, Oriented, Cooperative. No: Mild Distress HEENT: Conjunctiva Clear, Mucosa Moist & [place]. No: Scleral Icterus Neck: Supple, JVD Lungs: Normal Respiratory Effort, Decreased Breath Sounds (left lung base) Cardiovascular: Regular Rate, Regular Rhythm, Systolic Murmur GI/Abdominal Exam: Normal Bowel Sounds, Soft, Non-Tender, No Distention Back Exam: Normal Inspection, Full Range of Motion Extremities: No Pedal Edema. No: Increased Warmth Peripheral Pulses: 2+: Dorsalis Pedis (L), Dorsalis Pedis (R) Skin: Warm, Dry Neuro Extensive - Mental Status: Alert, Oriented x3, Nl Response to Commands Neuro Extensive - Motor, Sensory, Reflexes: CN II-XII Intact. No: Dysarthria, Abnormal Motor, Tremor Psychiatric: Alert, Normal Affect, Normal Mood - Patient Data Lab Results Last 24 hrs: Na 118 K+ 3.1 Creat 0.8 WBC 10 Imaging Impressions Last 24 hrs: CXR - images personally reviewed - there is a moderate left pleural effusion. Lungs are clear otherwise. No mass or infiltrate. *Q Meaningful Use (ADM) - VTE Risk Assess *Q Each Risk Factor Represents 1 Point: Congestive heart failure (CHF) Total Score 1 Point Risk Factors: 1 Each Risk Factor Represents 2 Points: None Total Score 2 Point Risk Factors: 0 Each Risk Factor Represents 3 Points: Age 75 Years or Greater, History of DVT/PE Total Score 3 Point Risk Factors: 6 Each Risk Factor Represents 5 Points: None Total Score 5 Point Risk Factors: 0 Venous Thromboembolism Risk Factor Score *Q: 7 - Problem List (1) Hyponatremia SNOMED Code(s): 00473274 ICD Code: E87.1 - HYPO-OSMOLALITY AND HYPONATREMIA Status: Acute Current Visit: Yes (2) Hypokalemia SNOMED Code(s): 69819330 ICD Code: E87.6 - HYPOKALEMIA Status: Acute Current Visit: Yes (3) Acute systolic congestive heart failure, NYHA class 3 SNOMED Code(s): 717853696, 449977641, 905849497 ICD Code: I50.21 - ACUTE SYSTOLIC (CONGESTIVE) HEART FAILURE Status: Acute Current Visit: No (4) Paroxysmal atrial tachycardia Status: Chronic Current Visit: No (5) CKD (chronic kidney disease) stage 3, GFR 30-59 ml/min SNOMED Code(s): 333933963 ICD Code: N18.3 - CHRONIC KIDNEY DISEASE, STAGE 3 (MODERATE) Status: Chronic Current Visit: No Problem List Initiated/Reviewed/Updated: Yes Orders Last 24hrs: Active Orders 24 hr Category Date Time Status Patient Status [ADT] Routine ADT 03/27/19 14:35 Ordered Cardiac Monitoring [RC] CONTINUOUS Care 03/27/19 14:36 Ordered Height and Weight [RC] DAILY Care 03/28/19 07:00 Ordered Intake and Output [RC] QSHIFT Care 03/27/19 14:35 Ordered Notify Provider Vital Signs [RC] ASDIRECTED Care 03/27/19 14:35 Ordered Oxygen Therapy [RC] PRN Care 03/27/19 14:35 Ordered RT Aerosol Therapy [RC] ASDIRECTED Care 03/27/19 14:37 Ordered Up With Assistance [RC] ASDIRECTED Care 03/27/19 14:34 Ordered VTE/DVT Education [RC] Per Unit Routine Care 03/27/19 14:35 Ordered Vital Signs [RC] Q4H Care 03/27/19 14:35 Ordered 2 Gram Sodium Diet [DIET] Diet 03/27/19 Dinner Ordered BASIC METABOLIC PANEL,BMP [CHEM] AM Lab 03/28/19 05:11 Ordered CBC W/O DIFF,HEMOGRAM [HEME] AM Lab 03/28/19 05:11 Ordered MAGNESIUM [CHEM] AM Lab 03/28/19 05:11 Ordered SODIUM,NA [CHEM] Timed Lab 03/27/19 21:00 Ordered Acetaminophen [Tylenol] Med 03/27/19 14:34 Ordered 650 mg PO Q4H PRN Albuterol [Proventil Neb Soln] Med 03/27/19 14:34 Ordered 2.5 mg NEB Q4H PRN Docusate Sodium/Sennosides [Senna Plus] Med 03/27/19 14:34 Ordered 1 tab PO BID PRN Furosemide [Lasix] Med 03/27/19 14:37 Once 20 mg IVPUSH ONETIME ONE LORazepam [Ativan] Med 03/27/19 14:34 Ordered 0.5 mg IVPUSH Q4H PRN Magnesium Hydroxide [Milk of Magnesia] Med 03/27/19 14:34 Ordered 30 ml PO Q12H PRN Melatonin Med 03/27/19 14:34 Ordered 9 mg PO BEDTIME PRN Ondansetron [Zofran ODT] Med 03/27/19 14:34 Ordered 4 mg PO Q6H PRN Ondansetron [Zofran] Med 03/27/19 14:34 Ordered 4 mg IV Q6H PRN Potassium Chloride [Klor-Con M20] Med 03/27/19 14:45 Ordered 40 meq PO BID Sodium Chloride 0.9% [Saline Flush] Med 03/27/19 14:34 Ordered 10 ml FLUSH ASDIRECTED PRN Saline Lock Insert [OM.PC] Urgent Oth 03/27/19 14:34 Ordered Resuscitation Status Routine Resus Stat 03/27/19 14:34 Ordered Assessment/Plan Comment:: ASSESSMENT AND PLAN - Hypervolemic hyponatremia - I suspect she has excess free water with probable contribution from her congestive heart failure but also possibly related to her recent antibiotic use with the Bactrim. She has mild evidence for volume overload at this time and would benefit from diuresis. She is not symptomatic ( unless the nausea and dry heaves are a symptom of the low sodium) suggesting a slow decline. -Furosemide 20 mg IV 1 -Repeat sodium level tonight and in the morning -Strict intake and output monitoring Nausea with dry heaves - I suspect this is related to her Bactrim use and should improve now that the medication has been discontinued. -Symptomatically management Systolic congestive heart failure - Recently diagnosed. Patient has been compliant with medications and weight had been stable until she was started on the Bactrim. Mild evidence for volume overload at this time. -Furosemide 1 as above -Reassess volume status in the morning -Continue medical management Hypokalemia - Probably related to poor intake complicated by recent diuretic use. -Potassium 40 mEq now and at bedtime -Recheck in the morning Left pleural effusion - moderate in size but I don't think it's significantly symptomatic at this time. We will reassess volume status and clinical status tomorrow and decide whether or not she needs an additional thoracentesis. Persistent atrial fibrillation - also recently diagnosed. She is chronically anticoagulated. Rate is controlled at this time. -Continue rate control and systemic anticoagulation Maintenance issues - - DVT prophylaxis - Rivaroxaban - GI prophylaxis - not indicated - Nutrition - Low sodium - Styles catheter - Not indicated CODE STATUS - DNR/DNI Admission justification - This patient will be admitted for inpatient services and is medically appropriate meeting medical necessity for inpatient admission as outlined in my documentation. I reasonably expect the patient will require inpatient services that span a period time over 2 midnights. I reasonably expect this patient to be discharged or transferred within 96 hours after admission to the [facility]. Disposition - I would anticipate discharge home after the hospital stay Primary care physician - Dr. Garland Love M.D.
[2019-03-27] MEDS ORDERED: Furosemide 20 MG/2 ML VIAL IVPUSH ONE (15:15)
[2019-03-27] MEDS: Potassium Chloride 20 MEQ Tab.ER PO SCH ×2 (15:43→20:45)
[2019-03-27] MEDS: Rivaroxaban 15 MG Tab PO SCH (20:45)
[2019-03-27] MEDS ORDERED: Pravastatin 20 MG Tab PO SCH (21:00)
[2019-03-28] MEDS ORDERED: Furosemide 20 MG/2 ML VIAL IVPUSH SCH (09:00)
[2019-03-28] MEDS: Levothyroxine 88 MCG Tab PO SCH (11:14)
[2019-03-28] MEDS: Diltiazem 180 MG Cap.CD PO SCH (11:15)
[2019-03-28] MEDS: Metoprolol Succinate 25 MG Tab.ER PO SCH (11:16)
[2019-03-28] MEDS: Hypromellose 0.4% Ophth Soln 15 ML Bottle EYEBOTH SCH (11:16)
--- NOTE | 2019-03-28 11:56 | PCM.PN ---
- General Info Date of Service: 03/28/19 Subjective Update: There were no acute events overnight. The patient reports resolution of nausea and dry heaves. No complaints of shortness of breath or lower extremity edema. No complaints of chest pain. Good response to diuresis yesterday. Hyponatremia has been steadily improving. Functional Status: Reports: Pain Controlled, Tolerating Diet - Review of Systems Pulmonary: Denies: Shortness of Breath Cardiovascular: Denies: Palpitations - Patient Data Vitals - Most Recent: Last Vital Signs Temp 35.7 C 03/28/19 10:44 Pulse 67 03/28/19 11:16 Resp 16 03/28/19 10:44 BP 117/77 03/28/19 11:16 Pulse Ox 95 03/28/19 10:44 Weight - Most Recent: 47.23 kg I&O - Last 24 Hours: Intake & Output 03/27/19 03/28/19 03/28/19 22:59 06:59 14:59 Intake Total 440 700 120 Output Total 200 1800 700 Balance 240 -1100 -580 Lab Results Last 24 Hours: Laboratory Results - last 24 hr 03/27/19 03/28/19 03/28/19 Range/Units 21:00 04:50 04:50 WBC 9.5 (4.5-11.0) K/uL RBC 4.99 (3.30-5.50) M/uL Hgb 14.4 (12.0-15.0) g/dL Hct 41.7 (36.0-48.0) % MCV 84 (80-98) fL MCH 29 (27-31) pg MCHC 35 (32-36) % Plt Count 320 (150-400) K/uL Sodium 121 L 124 L (140-148) mmol/L Potassium 3.9 (3.6-5.2) mmol/L Chloride 91 L (100-108) mmol/L Carbon Dioxide 27 (21-32) mmol/L Anion Gap 9.9 (5.0-14.0) mmol/L BUN 9 (7-18) mg/dL Creatinine 0.9 (0.6-1.0) mg/dL Est Cr Clr Drug Dosing 31.04 mL/min Estimated GFR (MDRD) 59 L (>60) Glucose 88 (74-106) mg/dL Calcium 7.8 L D (8.5-10.1) mg/dL Magnesium 1.8 (1.8-2.4) mg/dL Med Orders - Current: Current Medications Acetaminophen (Tylenol) 650 mg PO Q4H PRN PRN Reason: Pain (Mild 1-3)/fever Albuterol (Proventil Neb Soln) 2.5 mg NEB Q4H PRN PRN Reason: Shortness Of Breath/wheezing Artificial Tears (Natural Balance Tears) 0 ml EYEBOTH DAILY [facility] Last Admin: 03/28/19 11:16 Dose: 1 drop Diltiazem HCl (Cardizem Cd) 180 mg PO DAILY [facility] Last Admin: 03/28/19 11:15 Dose: 180 mg Furosemide (Lasix) 20 mg PO DAILY [facility] Levothyroxine Sodium (Synthroid) 88 mcg PO DAILY@0730 [facility] Last Admin: 03/28/19 11:14 Dose: 88 mcg Lorazepam (Ativan) 0.5 mg IVPUSH Q4H PRN PRN Reason: Nausea/Vomiting Magnesium Hydroxide (Milk Of Magnesia) 30 ml PO Q12H PRN PRN Reason: Constipation Melatonin (Melatonin) 9 mg PO BEDTIME PRN PRN Reason: Sleep Metoprolol Succinate (Toprol Xl) 75 mg PO DAILY [facility] Last Admin: 03/28/19 11:16 Dose: 75 mg Ondansetron HCl (Zofran Odt) 4 mg PO Q6H PRN PRN Reason: Nausea able to take PO Ondansetron HCl (Zofran) 4 mg IV Q6H PRN PRN Reason: Nausea/Vomiting Pravastatin Sodium (Pravachol) 40 mg PO QPM [facility] Rivaroxaban (Xarelto) 15 mg PO WITHDINNER [facility] Last Admin: 03/27/19 20:45 Dose: 15 mg Senna/Docusate Sodium (Senna Plus) 1 tab PO BID PRN PRN Reason: Constipation Sodium Chloride (Saline Flush) 10 ml FLUSH ASDIRECTED PRN PRN Reason: Keep Vein Open Discontinued Medications Furosemide (Lasix) 20 mg IVPUSH ONETIME ONE Stop: 03/27/19 15:16 Last Admin: 03/27/19 17:04 Dose: 20 mg Furosemide (Lasix) 20 mg IVPUSH DAILY [facility] Last Admin: 03/28/19 10:05 Dose: 20 mg Potassium Chloride (Klor-Con M20) 40 meq PO BID [facility] Stop: 03/27/19 21:01 Last Admin: 03/27/19 20:45 Dose: 40 meq Pravastatin Sodium (Pravachol) 40 mg PO BEDTIME [facility] Last Admin: 03/27/19 20:46 Dose: 40 mg - Exam Quality Assessment: No: Supplemental Oxygen General: Alert, Oriented, Cooperative, No Acute Distress Lungs: Normal Respiratory Effort, Decreased Breath Sounds (mild left lower lung ) Cardiovascular: Regular Rate, Irregular Rhythm GI/Abdominal Exam: Soft, No Distention Extremities: No Pedal Edema Psy/Mental Status: Alert, Normal Affect - Problem List & Annotations (1) Hyponatremia SNOMED Code(s): 87291197 Code(s): E87.1 - HYPO-OSMOLALITY AND HYPONATREMIA Status: Acute Current Visit: Yes (2) Hypokalemia SNOMED Code(s): 42875806 Code(s): E87.6 - HYPOKALEMIA Status: Acute Current Visit: Yes (3) Acute systolic congestive heart failure, NYHA class 3 SNOMED Code(s): 767939940, 496040990, 301668515 Code(s): I50.21 - ACUTE SYSTOLIC (CONGESTIVE) HEART FAILURE Status: Acute Current Visit: No (4) Paroxysmal atrial tachycardia Status: Chronic Current Visit: No (5) CKD (chronic kidney disease) stage 3, GFR 30-59 ml/min SNOMED Code(s): 514686206 Code(s): N18.3 - CHRONIC KIDNEY DISEASE, STAGE 3 (MODERATE) Status: Chronic Current Visit: No - Problem List Review Problem List Initiated/Reviewed/Updated: Yes - My Orders Last 24 Hours: My Active Orders 03/27/19 14:34 Up With Assistance [RC] ASDIRECTED Acetaminophen [Tylenol] 650 mg PO Q4H PRN Albuterol [Proventil Neb Soln] 2.5 mg NEB Q4H PRN Docusate Sodium/Sennosides [Senna Plus] 1 tab PO BID PRN LORazepam [Ativan] 0.5 mg IVPUSH Q4H PRN Magnesium Hydroxide [Milk of Magnesia] 30 ml PO Q12H PRN Melatonin 9 mg PO BEDTIME PRN Ondansetron [Zofran ODT] 4 mg PO Q6H PRN Ondansetron [Zofran] 4 mg IV Q6H PRN Sodium Chloride 0.9% [Saline Flush] 10 ml FLUSH ASDIRECTED PRN Saline Lock Insert [OM.PC] Urgent Resuscitation Status Routine 03/27/19 14:35 Patient Status [ADT] Routine Intake and Output [RC] QSHIFT Notify Provider Vital Signs [RC] ASDIRECTED Oxygen Therapy [RC] PRN VTE/DVT Education [RC] Per Unit Routine Vital Signs [RC] Q4H 03/27/19 14:36 Cardiac Monitoring [RC] CONTINUOUS 03/27/19 14:37 RT Aerosol Therapy [RC] ASDIRECTED 03/27/19 Dinner 2 Gram Sodium Diet [DIET] 03/28/19 07:00 Height and Weight [RC] DAILY 03/28/19 10:00 Diltiazem [Cardizem CD] 180 mg PO DAILY Levothyroxine [Synthroid] 88 mcg PO DAILY@0730 Metoprolol Succinate [Toprol XL] 75 mg PO DAILY 03/28/19 10:15 Hypromellose [Natural Balance Tears] 0 ml EYEBOTH DAILY 03/28/19 17:00 Pravastatin [Pravachol] 40 mg PO QPM 03/29/19 09:00 Furosemide [Lasix] 20 mg PO DAILY - Plan Plan:: ASSESSMENT AND PLAN - Hypervolemic hyponatremia - improving with diuresis. -Furosemide 20 mg IV 1 -Transition to oral furosemide in the morning -Repeat sodium level in the morning -Strict intake and output monitoring Nausea with dry heaves - I suspect this is related to her Bactrim use and did resolve. -Symptomatical management Systolic congestive heart failure - Recently diagnosed. Clinically feeling better with diuresis. Minimal JVD this morning. -Furosemide 1 as above, transition to oral in the morning -Continue medical management Hypokalemia - Probably related to poor intake complicated by recent diuretic use. Level better today. -Potassium 40 mEq now and at bedtime -Recheck in the morning Left pleural effusion - moderate in size but I don't think it's significantly symptomatic or large enough to take the risk of drainage at this time Persistent atrial fibrillation - also recently diagnosed. She is chronically anticoagulated. Rate is controlled at this time. -Continue rate control and systemic anticoagulation Maintenance issues - - DVT prophylaxis - Rivaroxaban - GI prophylaxis - not indicated - Nutrition - Low sodium Disposition - I would anticipate discharge home after the hospital stay, possibly tomorrow stable overnight Primary care physician - Dr. Garland Love M.D.
[2019-03-28] MEDS: Potassium Chloride 20 MEQ Tab.ER PO SCH ×2 (13:16→20:43)
[2019-03-28] MEDS: Rivaroxaban 15 MG Tab PO SCH (16:58)
[2019-03-28] MEDS ORDERED: Rivaroxaban 15 MG Tab PO SCH (17:00)
[2019-03-28] MEDS ORDERED: Pravastatin 20 MG Tab PO SCH (17:00)
[2019-03-29] MEDS: Levothyroxine 88 MCG Tab PO SCH (07:21)
[2019-03-29] MEDS: Metoprolol Succinate 25 MG Tab.ER PO SCH (08:35)
[2019-03-29] MEDS: Diltiazem 180 MG Cap.CD PO SCH (08:36)
[2019-03-29] MEDS: Hypromellose 0.4% Ophth Soln 15 ML Bottle EYEBOTH SCH (08:36)
[2019-03-29] MEDS ORDERED: Furosemide 20 MG Tab PO SCH (09:00)
--- NOTE | 2019-03-29 10:14 | PCM.DCSUM1 ---
Discharge Summary - Hospital Course Brief History: 80-year-old female with new diagnosis of systolic congestive heart failure and paroxysmal atrial fibrillation as well as recent treatment for a urinary tract infection who presented to the clinic with nausea and dry heaves. Workup in the clinic suggested significant hyponatremia and mild hypokalemia. She was sent to the hospital for management with her GI symptoms and profound electrolyte abnormality that be related to congestive heart failure. - Discharge Data Discharge Date: 03/29/19 Discharge Disposition: Home, Self-Care 01 Condition: Good - Discharge Diagnosis/Problem(s) (1) Hyponatremia SNOMED Code(s): 07169397 ICD Code: E87.1 - HYPO-OSMOLALITY AND HYPONATREMIA Status: Acute Current Visit: Yes (2) Hypokalemia SNOMED Code(s): 75839552 ICD Code: E87.6 - HYPOKALEMIA Status: Acute Current Visit: Yes (3) Acute systolic congestive heart failure, NYHA class 3 SNOMED Code(s): 117091631, 424065570, 423823984 ICD Code: I50.21 - ACUTE SYSTOLIC (CONGESTIVE) HEART FAILURE Status: Acute Current Visit: No (4) Paroxysmal atrial tachycardia Status: Chronic Current Visit: No (5) CKD (chronic kidney disease) stage 3, GFR 30-59 ml/min SNOMED Code(s): 333946063 ICD Code: N18.3 - CHRONIC KIDNEY DISEASE, STAGE 3 (MODERATE) Status: Chronic Current Visit: No - Patient Summary/Data Hospital Course: Jennifer was a direct admission from the clinic where she presented with nausea , dry heaves and weakness. She had recently been treated for a urinary tract infection with Bactrim. Workup in the clinic revealed a potassium of 3.1 and a sodium of 118. Chest x-ray showed partial reaccumulation of the left pleural effusion. Patient was sent to the hospital for admission. I suspected that the GI symptoms were related to the Bactrim and this was discontinued. The patient' s urine was clear and I don't believe there was any additional need for antibiotics so we did not prescribe any. Regarding the hyponatremia, I suspect that this was hypervolemic with the pleural effusion and JVD is evidence for volume overload. She received a dose of furosemide at the time of admission in the morning after admission. This dramatically improved her volume status. Her sodium level steadily improve throughout the course of the hospital stay. Symptomatically she was feeling quite well even by the morning after admission. She has been up and walking around without significant shortness of breath. I don't believe the left pleural effusion is quite large enough for thoracentesis at this time but will need to be monitored. For the most part her atrial fibrillation was well controlled though occasionally with some activities it did rise for a short period of time. The patient was asymptomatic. Her resting heart rate has been around 60 so I don't believe we can go up on medications at this time. We may need to consider an antiarrhythmic medication such as amiodarone if we have additional difficulties with symptomatic atrial fibrillation. She feels well at this time. She is not on oxygen. Her weight has improved. No complaints of shortness of breath. I believe she is safe for discharge to home. No medication changes were made at this time. - Patient Instructions Diet: Low Sodium Activity: As Tolerated Showering/Bathing: May Shower Notify Provider of: Fever, Increased Pain, Nausea and/or Vomiting Other/Special Instructions: 1. You were in the hospital for management of hyponatremia which was a result of retained fluid in the setting of congestive heart failure. Your sodium level has improved dramatically with diuresis provided in the hospital. I would recommend that you continue your previous furosemide (Lasix) dosing. Please continue to keep track of your weight daily as you have been doing. Alert your provider if you have weight gain of more than 2 pounds in 1 day or 4 pounds in 2-3 days, especially if taking an extra dose of your diuretic does not reduce your weight. 2. Continue your other home medications as previously prescribed. 3. Follow up as scheduled with Dr. Haque. 4. Seek medical attention if you develop fever greater than 101, severe shortness of breath or chest pain/pressure. - Discharge Plan *PRESCRIPTION DRUG MONITORING PROGRAM REVIEWED*: Not Applicable *COPY OF PRESCRIPTION DRUG MONITORING REPORT IN PATIENT BRIANNA: Not Applicable Prescriptions/Med Rec: Diltiazem HCl [Diltiazem 24Hr Cd] 180 mg PO DAILY #30 cap.er.24h Furosemide [Lasix] 20 mg PO DAILY #30 tablet Metoprolol Succinate 75 mg PO DAILY #45 tab.er.24h Home Medications: Home Meds Calcium Carbonate/Vitamin D3 [Calcium 500 + Vit D Caplet] 1 tab PO 1200 [History] Carboxymethylcellulose Sodium [Thera Tears] 1 drop EYEBOTH DAILY 02/25/19 [ History] Levothyroxine [Synthroid] 88 mcg PO DAILY 02/25/19 [History] Multivitamin [Multi-Vitamin Daily] 1 tab PO 1200 02/25/19 [History] [place]-3/DHA/Epa/Fish Oil [[place]-3 Fish Oil 1,000 MG Sfgl] 1 cap PO DAILY [History] Potassium Chloride 10 meq PO 1200 02/25/19 [History] Pravastatin [Pravachol] 40 mg PO QPM 02/25/19 [History] Rivaroxaban [Xarelto] 15 mg PO WITHDINNER 02/25/19 [History] Vitamin E 1 tab PO 1200 02/25/19 [History] Docusate Sodium [Colace] 100 mg PO DAILY 03/28/19 [History] Vit A/Vit C/Vit E/Zinc/Copper [Vision Formula Softgel] 1 each PO BID 03/28/19 [ History] Diltiazem HCl [Diltiazem 24Hr Cd] 180 mg PO DAILY #30 cap.er.24h 03/29/19 [Rx] Furosemide [Lasix] 20 mg PO DAILY #30 tablet 03/29/19 [Rx] Metoprolol Succinate 75 mg PO DAILY #45 tab.er.24h 03/29/19 [Rx] Oxygen Therapy Mode: Room Air Patient Handouts: Heart Failure, [id number] Referrals: Carline Haque MD [Primary Care Provider] - 04/07/19 1:30 pm (Please arrive 15 minutes early to register for your appointment. YOUR APPOINTMENT WITH DR. HAQUE AT [facility] [place].) - Discharge Summary/Plan Comment DC Time >30 min.: No - Patient Data Vitals - Most Recent: Last Vital Signs Temp 35.4 C 03/29/19 07:00 Pulse 66 03/29/19 08:35 Resp 16 03/29/19 07:00 BP 133/93 H 03/29/19 08:35 Pulse Ox 98 03/29/19 07:00 Weight - Most Recent: 46.811 kg I&O - Last 24 hours: Intake & Output 03/28/19 03/29/19 03/29/19 22:59 06:59 14:59 Intake Total 120 Output Total 1000 Balance -1000 120 Med Orders - Current: Current Medications Acetaminophen (Tylenol) 650 mg PO Q4H PRN PRN Reason: Pain (Mild 1-3)/fever Albuterol (Proventil Neb Soln) 2.5 mg NEB Q4H PRN PRN Reason: Shortness Of Breath/wheezing Artificial Tears (Natural Balance Tears) 0 ml EYEBOTH DAILY [facility] Last Admin: 03/29/19 08:36 Dose: 1 drop Diltiazem HCl (Cardizem Cd) 180 mg PO DAILY [facility] Last Admin: 03/29/19 08:36 Dose: 180 mg Furosemide (Lasix) 20 mg PO DAILY [facility] Last Admin: 03/29/19 08:38 Dose: 20 mg Levothyroxine Sodium (Synthroid) 88 mcg PO DAILY@0730 [facility] Last Admin: 03/29/19 07:21 Dose: 88 mcg Lorazepam (Ativan) 0.5 mg IVPUSH Q4H PRN PRN Reason: Nausea/Vomiting Magnesium Hydroxide (Milk Of Magnesia) 30 ml PO Q12H PRN PRN Reason: Constipation Last Admin: 03/28/19 14:51 Dose: 30 ml Melatonin (Melatonin) 9 mg PO BEDTIME PRN PRN Reason: Sleep Metoprolol Succinate (Toprol Xl) 75 mg PO DAILY [facility] Last Admin: 03/29/19 08:35 Dose: 75 mg Ondansetron HCl (Zofran Odt) 4 mg PO Q6H PRN PRN Reason: Nausea able to take PO Ondansetron HCl (Zofran) 4 mg IV Q6H PRN PRN Reason: Nausea/Vomiting Pravastatin Sodium (Pravachol) 40 mg PO QPM [facility] Last Admin: 03/28/19 16:58 Dose: 40 mg Rivaroxaban (Xarelto) 15 mg PO WITHDINNER [facility] Last Admin: 03/28/19 16:58 Dose: 15 mg Senna/Docusate Sodium (Senna Plus) 1 tab PO BID PRN PRN Reason: Constipation Last Admin: 03/28/19 14:51 Dose: 1 tab Sodium Chloride (Saline Flush) 10 ml FLUSH ASDIRECTED PRN PRN Reason: Keep Vein Open Discontinued Medications Furosemide (Lasix) 20 mg IVPUSH ONETIME ONE Stop: 03/27/19 15:16 Last Admin: 03/27/19 17:04 Dose: 20 mg Furosemide (Lasix) 20 mg IVPUSH DAILY [facility] Last Admin: 03/28/19 10:05 Dose: 20 mg Potassium Chloride (Klor-Con M20) 40 meq PO BID [facility] Stop: 03/27/19 21:01 Last Admin: 03/27/19 20:45 Dose: 40 meq Potassium Chloride (Klor-Con M20) 40 meq PO BID [facility] Stop: 03/28/19 21:01 Last Admin: 03/28/19 20:43 Dose: 40 meq Pravastatin Sodium (Pravachol) 40 mg PO BEDTIME [facility] Last Admin: 03/27/19 20:46 Dose: 40 mg - Exam Quality Assessment: Denies: Supplemental Oxygen General: Reports: Alert, Oriented, Cooperative, No Acute Distress Lungs: Reports: Normal Respiratory Effort Cardiovascular: Reports: Regular Rate, Irregular Rhythm GI/Abdominal Exam: Soft, No Distention Extremities: No Pedal Edema Psy/Mental Status: Reports: Alert, Normal Affect
== END 2019-03-29 11:04 | disposition home or self-care (01) | DRG 640 ==
LOC: JP.MS 12:54
PROVIDERS: ADMIT Internal Medicine; ATTEND Internal Medicine
DX: E87.1 Hypo-osmolality and hyponatremia (principal); I50.23 Acute on chronic systolic (congestive) heart failure; I13.0 Hypertensive heart and chronic kidney disease with heart failure and stage 1 through stage 4 chronic kidney disease, or unspecified chronic kidney disease; I48.1 Persistent atrial fibrillation; I48.0 Paroxysmal atrial fibrillation; N18.3 Chronic kidney disease, stage 3 (moderate); E87.6 Hypokalemia; E78.00 Pure hypercholesterolemia, unspecified; E03.9 Hypothyroidism, unspecified; E61.1 Iron deficiency; T36.8X5A Adverse effect of other systemic antibiotics, initial encounter; Z90.49 Acquired absence of other specified parts of digestive tract; Z86.718 Personal history of other venous thrombosis and embolism; Z86.711 Personal history of pulmonary embolism; Z88.6 Allergy status to analgesic agent; Z88.1 Allergy status to other antibiotic agents; Z79.899 Other long term (current) drug therapy; Z79.890 Hormone replacement therapy
CPT/HCPCS: 36415; 80048; 83735; 84295; 85027; A9270-GY; J1940

== ENCOUNTER 2020-03-24 21:41 | Emergency (ER) | payer MEDICARE ==
[2020-03-24] MEDS ORDERED: Silver Nitrate Applicator Each TOP ONE (22:00)
[2020-03-24] MEDS ORDERED: Silver Nitrate Applicator Each ONE (22:04)
--- NOTE | 2020-03-24 22:16 | EDM.PDOC ---
ED HPI GENERAL MEDICAL PROBLEM - General Chief Complaint: ENT Problem Stated Complaint: [facility] Time Seen by Provider: 03/24/20 22:14 Source of Information: Reports: Patient History Limitations: Reports: No Limitations - History of Present Illness INITIAL COMMENTS - FREE TEXT/NARRATIVE: pt is having heavy bleeding from the left nostril. She states a a small scap got pulled off in her nostril and that is when she started bleeding. She is on xarelto. This started about 8 pm. Onset: Today, Sudden Duration: Hour(s): Location: Reports: Face Associated Symptoms: Reports: No Other Symptoms Treatments [employer]: Reports: Other (see below) Other Treatments [employer]: Nose clamp - Related Data Allergies Allergy/AdvReac Type Severity Reaction Status Date / Time Sulfa (Sulfonamide Allergy Nausea Verified 03/24/20 21:55 Antibiotics) codeine AdvReac Unknown Tachycardia Verified 03/24/19 07:37 levofloxacin [From Levaquin] AdvReac Unknown Diarrhea Verified 03/24/19 00:28 Home Meds: Home Meds Calcium Carbonate/Vitamin D3 [Calcium 500-Vit D3 125 Caplet] 1 tab PO 1200 02/25 [History] Carboxymethylcellulose Sodium [Thera Tears] 1 drop EYEBOTH DAILY 02/25/19 [ History] Levothyroxine [Synthroid] 88 mcg PO DAILY 02/25/19 [History] Multivitamin [Multi-Vitamin Daily] 1 tab PO 1200 02/25/19 [History] [place]-3/DHA/Epa/Fish Oil [[place]-3 Fish Oil 1,000 MG Sfgl] 1 cap PO DAILY [History] Potassium Chloride 10 meq PO 1200 02/25/19 [History] Pravastatin [Pravachol] 40 mg PO QPM 02/25/19 [History] Rivaroxaban [Xarelto] 15 mg PO WITHDINNER 02/25/19 [History] Vitamin E 1 tab PO 1200 02/25/19 [History] Docusate Sodium [Colace] 100 mg PO DAILY 03/28/19 [History] Vit A/Vit C/Vit E/Zinc/Copper [Vision Formula Softgel] 1 each PO BID 03/28/19 [ History] Furosemide [Lasix] 20 mg PO DAILY #30 tablet 03/29/19 [Rx] Metoprolol Succinate 75 mg PO DAILY #45 tab.er.24h 03/29/19 [Rx] dilTIAZem HCL [Diltiazem 24Hr ER (Cd)] 180 mg PO DAILY #30 cap.er.24h 03/29/19 [ Rx] Past Medical History HEENT History: Reports: Cataract Cardiovascular History: Reports: Afib, Heart Failure, High Cholesterol, Hypertension, Other (See Below) Other Cardiovascular History: Recent hospitalization 02/25/19 for CHF and A-Fib with RVR. 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: Musculoskeletal History: Reports: Fracture Endocrine/Metabolic History: Reports: Hypothyroidism Hematologic History: Reports: Iron Deficiency - Infectious Disease History Infectious Disease History: Reports: Chicken Pox - Past Surgical History HEENT Surgical History: Reports: Cataract Surgery GI Surgical History: Reports: Cholecystectomy Social & Family History - Family History Family Medical History: Noncontributory Cardiac: Reports: Heart Murmur - Caffeine Use Caffeine Use: Reports: Coffee ED ROS ENT - Review of Systems Review Of Systems: See Below Constitutional: Reports: No Symptoms HEENT: Reports: Other (nose bleed from the left nostril) Respiratory: Reports: No Symptoms Cardiovascular: Reports: No Symptoms Endocrine: Reports: No Symptoms GI/Abdominal: Reports: No Symptoms : Reports: No Symptoms Musculoskeletal: Reports: No Symptoms ED EXAM, ENT - Physical Exam Exam: See Below Text/Narrative:: pt had alot of blood coming from the left nostril. She states she pulled a small scape off and it started to bleed heavily. Exam Limited By: No Limitations General Appearance: Alert, Anxious, Moderate Distress Ears: Normal TMs Nose: Other (pt has heavy bleeding from the left nostril There appears to be a arterial pumper on the post septum . This was cauderized with silver nitrate. . A rapid rhino 7.5 was inserted and 6 cc of air was inserted, The bleeding ceased after the air was inserted. ) Mouth/Throat: Normal Inspection Head: Atraumatic Neck: Normal Inspection Respiratory/Chest: No Respiratory Distress Cardiovascular: Regular Rate, Rhythm Course - Vital Signs Last Recorded V/S: Last Vital Signs Temp 36.8 C 03/24/20 22:33 Pulse 49 L 03/24/20 22:33 Resp 14 03/24/20 22:33 BP 183/75 H 03/24/20 22:33 Pulse Ox 95 03/24/20 22:33 - Orders/Labs/Meds Orders: Active Orders 24 hr Category Date Time Status UA W/MICROSCOPIC [URIN] Urgent Lab 03/24/20 22:42 Ordered Labs: Laboratory Tests 03/24/20 03/24/20 03/24/20 Range/Units 21:45 21:46 21:55 WBC 6.8 (4.5-11.0) K/uL RBC 4.88 (3.30-5.50) M/uL Hgb 14.4 (12.0-15.0) g/dL Hct 45.6 (36.0-48.0) % MCV 93 (80-98) fL MCH 30 (27-31) pg MCHC 32 (32-36) % Plt Count 217 (150-400) K/uL Neut % (Auto) 65 (36-66) % Lymph % (Auto) 18 L (24-44) % Curry % (Auto) 12 H (2-6) % Eos % (Auto) 5 H (2-4) % Baso % (Auto) 1 (0-1) % PT 16.7 H (9.5-12.0) sec INR 1.59 H (0.80-1.20) APTT 34.5 (27.0-36.0) sec Sodium 138 L (140-148) mmol/L Potassium 4.2 (3.6-5.2) mmol/L Chloride 100 (100-108) mmol/L Carbon Dioxide 33 H (21-32) mmol/L Anion Gap 9.2 (5.0-14.0) mmol/L BUN 19 H D (7-18) mg/dL Creatinine 1.3 H (0.6-1.0) mg/dL Est Cr Clr Drug Dosing TNP Estimated GFR (MDRD) 39 L (>60) Glucose 106 (74-106) mg/dL Calcium 9.6 D (8.5-10.1) mg/dL Meds: Medications Discontinued Medications Generic Name Dose Route Start Last Admin Trade Name Freq PRN Reason Stop Dose Admin Silver Nitrate Confirm 03/24/20 22:04 Silver Nitrate Administered 03/24/20 22:05 Dose 1 each .ROUTE .STK-MED ONE - Re-Assessments/Exams Free Text/Narrative Re-Assessment/Exam: 03/24/20 23:23 pt was observed and had no further sig bleeding she is quite comfortable at this point. Departure - Departure Time of Disposition: 23:24 Disposition: Home, Self-Care 01 Condition: Fair Clinical Impression: Left-sided nosebleed, Hx of chcf use of blood thinners - Discharge Information Referrals: PCP,None [Primary Care Provider] - Forms: ED Department Discharge Care Plan Goals: packing should be left in place until Sunday afternoon. Pt can call [facility] to see if they will remove it or rtc here for removal. Low activity not alot of bending. rtc if problems. Sepsis Event Note - Evaluation Sepsis Screening Result: No Definite Risk - Focused Exam Vital Signs: Vital Signs Temp Pulse Resp BP Pulse Ox 03/24/20 22:33 36.8 C 49 L 14 183/75 H 95 03/24/20 21:57 37.3 C 50 L 20 177/82 H 97 Date Exam was Performed: 03/24/20 Time Exam was Performed: 23:23 - My Orders Last 24 Hours: My Active Orders 03/24/20 22:42 UA W/MICROSCOPIC [URIN] Urgent - Assessment/Plan Last 24 Hours: My Active Orders 03/24/20 22:42 UA W/MICROSCOPIC [URIN] Urgent
== END 2020-03-24 23:40 | disposition home or self-care (01) ==
LOC: JP.ED 21:41
DX: R04.0 Epistaxis (principal); I13.0 Hypertensive heart and chronic kidney disease with heart failure and stage 1 through stage 4 chronic kidney disease, or unspecified chronic kidney disease; I50.9 Heart failure, unspecified; N18.9 Chronic kidney disease, unspecified; I48.91 Unspecified atrial fibrillation; E78.00 Pure hypercholesterolemia, unspecified; Z79.01 Long term (current) use of anticoagulants; Z88.2 Allergy status to sulfonamides; Z88.5 Allergy status to narcotic agent; Z88.1 Allergy status to other antibiotic agents; Z79.899 Other long term (current) drug therapy
CPT/HCPCS: 30901; 30903; 36415; 80048; 81001; 85025; 85610; 85730; 99282; 99284-25

== ENCOUNTER 2020-03-26 16:12 | Emergency (ER) | payer MEDICARE ==
--- NOTE | 2020-03-26 16:44 | EDM.PDOC ---
ED HPI GENERAL MEDICAL PROBLEM - General Chief Complaint: ENT Problem Stated Complaint: NOSEBLEED REMOVAL OF PACKING Time Seen by Provider: 03/26/20 16:30 Source of Information: Reports: Patient, Old Records, RN History Limitations: Reports: No Limitations - History of Present Illness INITIAL COMMENTS - FREE TEXT/NARRATIVE: 89 yo female on Xarelto was seen here 2 days ago for epistaxis and had a RhinoRocket placed in her L nares. She returns today for removal. She has not had any problems with this since it was placed. 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) (RhinoRocket x 2 days) - Related Data Allergies Allergy/AdvReac Type Severity Reaction Status Date / Time Sulfa (Sulfonamide Allergy Nausea Verified 03/26/20 16:26 Antibiotics) codeine AdvReac Unknown Tachycardia Verified 03/26/20 16:26 levofloxacin [From Levaquin] AdvReac Unknown Diarrhea Verified 03/26/20 16:26 Home Meds: Home Meds Calcium Carbonate/Vitamin D3 [Calcium 500-Vit D3 125 Caplet] 1 tab PO 1200 02/25 [History] Carboxymethylcellulose Sodium [Thera Tears] 1 drop EYEBOTH DAILY 02/25/19 [ History] Levothyroxine [Synthroid] 88 mcg PO DAILY 02/25/19 [History] Multivitamin [Multi-Vitamin Daily] 1 tab PO 1200 02/25/19 [History] [place]-3/DHA/Epa/Fish Oil [[place]-3 Fish Oil 1,000 MG Sfgl] 1 cap PO DAILY [History] Potassium Chloride 10 meq PO 1200 02/25/19 [History] Pravastatin [Pravachol] 40 mg PO QPM 02/25/19 [History] Rivaroxaban [Xarelto] 15 mg PO WITHDINNER 02/25/19 [History] Vitamin E 1 tab PO 1200 02/25/19 [History] Docusate Sodium [Colace] 100 mg PO DAILY 03/28/19 [History] Vit A/Vit C/Vit E/Zinc/Copper [Vision Formula Softgel] 1 each PO BID 03/28/19 [ History] Furosemide [Lasix] 20 mg PO DAILY #30 tablet 03/29/19 [Rx] Metoprolol Succinate 75 mg PO DAILY #45 tab.er.24h 03/29/19 [Rx] dilTIAZem HCL [Diltiazem 24Hr ER (Cd)] 180 mg PO DAILY #30 cap.er.24h 03/29/19 [ Rx] Past Medical History HEENT History: Reports: Cataract Cardiovascular History: Reports: Afib, Heart Failure, High Cholesterol, Hypertension, Other (See Below) Other Cardiovascular History: Recent hospitalization 02/25/19 for CHF and A-Fib with RVR. 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: Musculoskeletal History: Reports: Fracture Endocrine/Metabolic History: Reports: Hypothyroidism Hematologic History: Reports: Iron Deficiency - Infectious Disease History Infectious Disease History: Reports: Chicken Pox - Past Surgical History HEENT Surgical History: Reports: Cataract Surgery GI Surgical History: Reports: Cholecystectomy Social & Family History - Family History Family Medical History: Noncontributory Cardiac: Reports: Heart Murmur - Tobacco Use Smoking Status *Q: Never Smoker - Caffeine Use Caffeine Use: Reports: None - Recreational Drug Use Recreational Drug Use: No ED ROS ENT - Review of Systems Review Of Systems: Comprehensive ROS is negative, except as noted in HPI. Constitutional: Reports: No Symptoms HEENT: Reports: Other (epistaxis 2 days ago, but not since.) ED EXAM, ENT - Physical Exam Exam: See Below Exam Limited By: No Limitations General Appearance: Alert, WD/WN, No Apparent Distress Eye Exam: Bilateral Eye: Normal Inspection Ears: Normal External Exam, Normal Canal, Hearing Grossly Normal Nose: Normal Inspection, No Blood, Other (RhinoRocket in L nares) Mouth/Throat: Normal Inspection, Normal Lips, Normal Oropharynx Head: Atraumatic, Normocephalic ED ENT PROCEDURES - Foreign Body Removal Performing Doctor:: Nhan Kasper Anesthesia Type: None Complications: No Comments: RhinoRocket deflated with a syringe. Removal did not cause re-bleeding. Patient observed in the ER for 12 minutes without any evidence of recurrent bleeding. Course - Vital Signs Last Recorded V/S: Last Vital Signs Temp 36.3 C 03/26/20 16:27 Pulse 55 L 03/26/20 16:27 Resp 14 03/26/20 16:27 BP 142/87 H 03/26/20 16:27 Pulse Ox 98 03/26/20 16:27 Departure - Departure Time of Disposition: 16:49 Disposition: Home, Self-Care 01 Condition: Good Clinical Impression: Encounter for removal of nasal packing - Discharge Information *PRESCRIPTION DRUG MONITORING PROGRAM REVIEWED*: No *COPY OF PRESCRIPTION DRUG MONITORING REPORT IN PATIENT BRIANNA: No Referrals: Carline Haque MD [Primary Care Provider] - Additional Instructions: Keep Vaseline in your left nostril for a few more more days applying twice daily. Return as needed. Sepsis Event Note - Evaluation Sepsis Screening Result: No Definite Risk - Focused Exam Vital Signs: Vital Signs Temp Pulse Resp BP Pulse Ox 03/26/20 16:27 36.3 C 55 L 14 142/87 H 98 Date Exam was Performed: 03/26/20 Time Exam was Performed: 16:39
== END 2020-03-26 17:03 | disposition home or self-care (01) ==
LOC: JP.ED 16:12
DX: Z48.01 Encounter for change or removal of surgical wound dressing (principal); I48.91 Unspecified atrial fibrillation; I13.0 Hypertensive heart and chronic kidney disease with heart failure and stage 1 through stage 4 chronic kidney disease, or unspecified chronic kidney disease; I50.9 Heart failure, unspecified; N18.9 Chronic kidney disease, unspecified; E03.9 Hypothyroidism, unspecified; Z79.01 Long term (current) use of anticoagulants; Z88.5 Allergy status to narcotic agent; Z88.2 Allergy status to sulfonamides; Z88.1 Allergy status to other antibiotic agents; Z79.899 Other long term (current) drug therapy
CPT/HCPCS: 99281; 99282